=== PATIENT | male | born 1965 | race Caucasian/White ===

== ENCOUNTER 2019-07-31 11:46 | Inpatient (IN) | payer MEDICARE, MEDICAID ==
[~2019-07-31] VITALS: Ht 175.3 cm; Wt 62.6 kg
[~2019-07-31 11:46] MED LIST: DIVA250T60 PO; MEDS UNVERIFIED; MELO-108 PO; OLAN10TA3 PO; OMEP20 PO
[2019-07-31] MEDS ORDERED: PROP10TA73 PO (17:01)
[2019-07-31] MEDS ORDERED: BENZ1TAB10 PO (17:01)
[2019-07-31] MEDS ORDERED: DIVA-78 PO (17:01)
[2019-07-31] MEDS ORDERED: PHENY100 PO ×2 (17:01)
[2019-07-31] MEDS ORDERED: PALI6 PO (17:01)
[2019-07-31] MEDS ORDERED: HYDR50TA46 PO (17:01)
[2019-07-31] MEDS ORDERED: PARO10TA89 PO (17:01)
[2019-07-31] MEDS ORDERED: PNEUMOCOCCAL VACCINE POLYVALENT 0.5 ML VIAL [PPSV23] IM ONE (20:00)
[2019-07-31 21:14] VITALS: BP 119/72
[2019-08-01 00:21] VITALS: BP 125/65
[2019-08-01 08:19] VITALS: BP 119/67
[2019-08-01 16:01] VITALS: BP 114/64
[2019-08-01] MEDS: BENZTROPINE MESYLATE 1 MG TABLET PO SCH (17:19)
[2019-08-01] MEDS: PROPRANOLOL HCL 10 MG TABLET PO SCH (17:19)
[2019-08-01] MEDS: PALIPERIDONE 6 MG ER TABLET PO SCH (17:19)
[2019-08-01] MEDS: HydrOXYzine PAMOATE 25 MG CAPSULE PO SCH (17:20)
[2019-08-01 18:24] VITALS: BP_SYST 112
[2019-08-01] MEDS: IBUPROFEN 600 MG TABLET PO PRN (18:25)
[2019-08-01] MEDS: DIVALPROEX SODIUM 500 MG DR TABLET PO SCH (21:01)
[2019-08-01] MEDS: PARoxetine HCL 10 MG TABLET PO SCH (21:01)
[2019-08-01] MEDS: PHENYTOIN SODIUM 100 MG ER CAPSULE PO SCH (21:26)
[2019-08-01] MEDS: HALOPERIDOL 5 MG TABLET PO PRN (22:59)
[2019-08-01] MEDS: LORazepam 2 MG TABLET PO PRN (22:59)
[2019-08-02 08:03] VITALS: BP 115/61
[2019-08-02] MEDS: PHENYTOIN 50 MG CHEWABLE TABLET PO SCH (08:29)
[2019-08-02] MEDS: BENZTROPINE MESYLATE 1 MG TABLET PO SCH ×2 (08:29→16:30)
[2019-08-02] MEDS: OMEPRAZOLE 20 MG CAPSULE PO SCH (08:29)
[2019-08-02] MEDS: PROPRANOLOL HCL 10 MG TABLET PO SCH ×2 (08:29→16:30)
[2019-08-02] MEDS: PALIPERIDONE 6 MG ER TABLET PO SCH ×2 (08:29→16:30)
[2019-08-02] MEDS: HydrOXYzine PAMOATE 25 MG CAPSULE PO SCH ×2 (08:29→16:29)
[2019-08-02] MEDS ORDERED: PHENYTOIN SODIUM 100 MG ER CAPSULE PO SCH (09:00)
[2019-08-02 16:11] VITALS: BP 119/78
[2019-08-02] MEDS: DIVALPROEX SODIUM 500 MG DR TABLET PO SCH (20:26)
[2019-08-02] MEDS: PARoxetine HCL 10 MG TABLET PO SCH (20:26)
[2019-08-02] MEDS: PHENYTOIN SODIUM 100 MG ER CAPSULE PO SCH (20:27)
[2019-08-02] MEDS: ZOLPIDEM TARTRATE 10 MG TABLET PO PRN (20:46)
[2019-08-03 03:57] VITALS: BP 110/78
[2019-08-03 07:44] LABS: EOSINOPHILS % (AUTO) 8.4 % (1.0-6.0); HEMOGLOBIN 12.9 g/dL (13.5-17.5); LYMPHOCYTES # (AUTO) 2.1 K/uL (1.0-4.8); LYMPHOCYTES % (AUTO) 36.5 % (22.0-44.0); MEAN CORPUSCULAR HEMOGLOBIN 32.2 pg (26.0-34.0); MEAN CORPUSCULAR VOLUME 92 fL (80-100); MONOCYTES # (AUTO) 0.5 K/uL (0.1-1.0); NEUTROPHILS # (AUTO) 2.6 K/uL (1.8-7.7); NEUTROPHILS % (AUTO) 46.1 % (40.0-70.0); PLATELET COUNT (AUTO) 307 K/uL (150-450); RED BLOOD CELL COUNT(AUTO) 4.02 MIL/uL (4.50-5.90); RED CELL DISTRIBUTION WIDTH 13.7 % (11.5-14.5)
[2019-08-03 08:06] VITALS: BP 147/86
[2019-08-03 08:07] LABS: HEMOGLOBIN A1C 5.5 % (4.5-6.2)
[2019-08-03] MEDS: PHENYTOIN 50 MG CHEWABLE TABLET PO SCH (08:09)
[2019-08-03] MEDS: PROPRANOLOL HCL 10 MG TABLET PO SCH ×2 (08:09→16:28)
[2019-08-03] MEDS: PALIPERIDONE 6 MG ER TABLET PO SCH ×2 (08:09→16:28)
[2019-08-03] MEDS: HydrOXYzine PAMOATE 25 MG CAPSULE PO SCH ×2 (08:09→16:28)
[2019-08-03] MEDS: BENZTROPINE MESYLATE 1 MG TABLET PO SCH ×2 (08:09→16:28)
[2019-08-03] MEDS: OMEPRAZOLE 20 MG CAPSULE PO SCH (08:09)
[2019-08-03 08:11] LABS: ALANINE AMINOTRANSFERASE 38 U/L (12-78); ALBUMIN 3.6 g/dL (3.4-5.0); ALKALINE PHOSPHATASE 85 U/L (46-116); ANION GAP 5 mmol/L (8-16); ASPARTATE AMINOTRANSFERASE 25 U/L (15-37); BILIRUBIN,TOTAL 0.3 mg/dL (0.1-1.0); CALCIUM, TOTAL 8.6 mg/dL (8.8-10.5); CARBON DIOXIDE 33 mmol/L (22-29); CHLORIDE 97 mmol/L (98-107); CHOL/HDL RATIO 8.9 (4.2-7.3); CHOLESTEROL 295 mg/dL (131-200); CREATININE 0.51 mg/dL (0.60-1.30); FREE T4 (FREE THYROXINE) 0.64 ng/dL (0.76-1.46); GLOMERULAR FILTR. RATE CALC > 60 mL/min (>60); GLUCOSE,RANDOM 99 mg/dL (70-110); HDL CHOLESTEROL 33 mg/dL (40-60); LDL CHOL (CALC.) 237 mg/dL (0-130); POTASSIUM 4.2 mmol/L (3.5-5.1); SODIUM SERUM 135 mmol/L (136-145); TRIGLYCERIDES 125 mg/dL (15-150); UREA NITROGEN, BLOOD 12 mg/dL (7-18); VALPROIC ACID 55 mcg/mL (50-100)
[2019-08-03 16:01] VITALS: BP 131/62
[2019-08-03] MEDS: LORazepam 2 MG TABLET PO PRN (18:27)
[2019-08-03] MEDS: DIVALPROEX SODIUM 500 MG DR TABLET PO SCH (20:30)
[2019-08-03] MEDS: PHENYTOIN SODIUM 100 MG ER CAPSULE PO SCH (20:30)
[2019-08-03] MEDS: PARoxetine HCL 10 MG TABLET PO SCH (20:30)
[2019-08-04 06:29] VITALS: BP 132/68
[2019-08-04] MEDS: PHENYTOIN 50 MG CHEWABLE TABLET PO SCH (08:17)
[2019-08-04] MEDS: HydrOXYzine PAMOATE 25 MG CAPSULE PO SCH ×2 (08:18→16:28)
[2019-08-04] MEDS: OMEPRAZOLE 20 MG CAPSULE PO SCH (08:18)
[2019-08-04] MEDS: PALIPERIDONE 6 MG ER TABLET PO SCH ×2 (08:18→16:27)
[2019-08-04] MEDS: BENZTROPINE MESYLATE 1 MG TABLET PO SCH ×2 (08:18→16:27)
[2019-08-04] MEDS: PROPRANOLOL HCL 10 MG TABLET PO SCH ×2 (08:18→16:27)
[2019-08-04 08:22] VITALS: BP 123/76
[2019-08-04] MEDS ORDERED: PHEN50 PO (13:23)
[2019-08-04] MEDS ORDERED: BISACODYL 5 MG EC TABLET PO PRN (13:30)
[2019-08-04] MEDS ORDERED: ALBUTEROL SULFATE HFA 90 MCG/PUFF 8 GM INHALER IH PRN (13:30)
[2019-08-04 16:00] VITALS: BP 127/63
[2019-08-04] MEDS: LORazepam 2 MG TABLET PO PRN (19:57)
[2019-08-04] MEDS: ATORVASTATIN CALCIUM 10 MG TABLET PO SCH (20:29)
[2019-08-04] MEDS: PHENYTOIN SODIUM 100 MG ER CAPSULE PO SCH (20:30)
[2019-08-04] MEDS: DIVALPROEX SODIUM 500 MG DR TABLET PO SCH (20:30)
[2019-08-04] MEDS: PARoxetine HCL 10 MG TABLET PO SCH (20:30)
[2019-08-04] MEDS: ZOLPIDEM TARTRATE 10 MG TABLET PO PRN (21:22)
[2019-08-05 00:05] VITALS: BP 107/62
[2019-08-05] MEDS: PALIPERIDONE 6 MG ER TABLET PO SCH ×2 (08:37→16:07)
[2019-08-05] MEDS: PROPRANOLOL HCL 10 MG TABLET PO SCH ×2 (08:37→16:07)
[2019-08-05] MEDS: PHENYTOIN 50 MG CHEWABLE TABLET PO SCH (08:37)
[2019-08-05] MEDS: OMEPRAZOLE 20 MG CAPSULE PO SCH (08:38)
[2019-08-05] MEDS: HydrOXYzine PAMOATE 25 MG CAPSULE PO SCH ×2 (08:38→16:07)
[2019-08-05] MEDS: BENZTROPINE MESYLATE 1 MG TABLET PO SCH ×2 (08:42→16:07)
[2019-08-05 16:45] VITALS: BP 141/76
[2019-08-05] MEDS: HALOPERIDOL 5 MG TABLET PO PRN (18:02)
[2019-08-05] MEDS: LORazepam 2 MG TABLET PO PRN (18:02)
[2019-08-05] MEDS: PHENYTOIN SODIUM 100 MG ER CAPSULE PO SCH (20:06)
[2019-08-05] MEDS: ATORVASTATIN CALCIUM 10 MG TABLET PO SCH (20:07)
[2019-08-05] MEDS: DIVALPROEX SODIUM 500 MG DR TABLET PO SCH (20:07)
[2019-08-05] MEDS: PARoxetine HCL 10 MG TABLET PO SCH (20:07)
[2019-08-05] MEDS: ZOLPIDEM TARTRATE 10 MG TABLET PO PRN (21:01)
[2019-08-06 06:03] VITALS: BP 100/61
[2019-08-06] MEDS: PHENYTOIN 50 MG CHEWABLE TABLET PO SCH (08:07)
[2019-08-06] MEDS: PALIPERIDONE 6 MG ER TABLET PO SCH ×2 (08:08→16:33)
[2019-08-06] MEDS: HydrOXYzine PAMOATE 25 MG CAPSULE PO SCH ×2 (08:08→16:33)
[2019-08-06] MEDS: PROPRANOLOL HCL 10 MG TABLET PO SCH ×2 (08:08→16:33)
[2019-08-06] MEDS: BENZTROPINE MESYLATE 1 MG TABLET PO SCH ×2 (08:08→16:33)
[2019-08-06] MEDS: OMEPRAZOLE 20 MG CAPSULE PO SCH (08:08)
[2019-08-06 08:09] VITALS: BP 112/76
[2019-08-06] MEDS: LORazepam 2 MG TABLET PO PRN ×2 (12:38→18:04)
[2019-08-06 16:18] VITALS: BP 116/60
[2019-08-06] MEDS: ATORVASTATIN CALCIUM 10 MG TABLET PO SCH (20:29)
[2019-08-06] MEDS: PARoxetine HCL 10 MG TABLET PO SCH (20:29)
[2019-08-06] MEDS: DIVALPROEX SODIUM 500 MG DR TABLET PO SCH (20:29)
[2019-08-06] MEDS: PHENYTOIN SODIUM 100 MG ER CAPSULE PO SCH (20:29)
[2019-08-06] MEDS: ZOLPIDEM TARTRATE 10 MG TABLET PO PRN (21:16)
[2019-08-07 06:56] VITALS: BP_SYST 112; BP_SYST 143; BP_DIAS 107; BP_DIAS 76
[2019-08-07 08:12] VITALS: BP 139/80
[2019-08-07] MEDS: OMEPRAZOLE 20 MG CAPSULE PO SCH (08:48)
[2019-08-07] MEDS: MULTIVITAMINS WITH IRON TABLET PO SCH (08:48)
[2019-08-07] MEDS: HydrOXYzine PAMOATE 25 MG CAPSULE PO SCH ×2 (08:48→17:41)
[2019-08-07] MEDS: PALIPERIDONE 6 MG ER TABLET PO SCH ×2 (08:48→17:41)
[2019-08-07] MEDS: BENZTROPINE MESYLATE 1 MG TABLET PO SCH ×2 (08:48→17:41)
[2019-08-07] MEDS: PHENYTOIN 50 MG CHEWABLE TABLET PO SCH (08:49)
[2019-08-07] MEDS: PROPRANOLOL HCL 10 MG TABLET PO SCH ×2 (08:49→17:41)
[2019-08-07] MEDS: LORazepam 2 MG TABLET PO PRN ×2 (12:21→22:16)
[2019-08-07 17:26] VITALS: BP 140/80
[2019-08-07] MEDS: PARoxetine HCL 10 MG TABLET PO SCH (20:31)
[2019-08-07] MEDS: DIVALPROEX SODIUM 500 MG DR TABLET PO SCH (20:31)
[2019-08-07] MEDS: PHENYTOIN SODIUM 100 MG ER CAPSULE PO SCH (20:31)
[2019-08-07] MEDS: ATORVASTATIN CALCIUM 10 MG TABLET PO SCH (20:31)
[2019-08-07] MEDS: ZOLPIDEM TARTRATE 10 MG TABLET PO PRN (20:54)
[2019-08-07 21:13] VITALS: BP 127/76
[2019-08-07] MEDS: ACETAMINOPHEN 325 MG TABLET PO PRN (21:13)
[2019-08-08 08:03] VITALS: BP 136/62
[2019-08-08] MEDS: PHENYTOIN 50 MG CHEWABLE TABLET PO SCH (08:10)
[2019-08-08] MEDS: OMEPRAZOLE 20 MG CAPSULE PO SCH (08:10)
[2019-08-08] MEDS: HydrOXYzine PAMOATE 25 MG CAPSULE PO SCH ×2 (08:10→16:21)
[2019-08-08] MEDS: MULTIVITAMINS WITH IRON TABLET PO SCH (08:10)
[2019-08-08] MEDS: BENZTROPINE MESYLATE 1 MG TABLET PO SCH ×2 (08:10→16:17)
[2019-08-08] MEDS: PROPRANOLOL HCL 10 MG TABLET PO SCH ×2 (08:10→16:18)
[2019-08-08] MEDS: PALIPERIDONE 6 MG ER TABLET PO SCH ×2 (08:10→16:17)
[2019-08-08] MEDS: LORazepam 2 MG TABLET PO PRN ×2 (11:09→21:15)
[2019-08-08 16:03] VITALS: BP 142/68
[2019-08-08] MEDS: DIVALPROEX SODIUM 500 MG DR TABLET PO SCH (20:17)
[2019-08-08] MEDS: PARoxetine HCL 10 MG TABLET PO SCH (20:19)
[2019-08-08] MEDS: ATORVASTATIN CALCIUM 10 MG TABLET PO SCH (20:20)
[2019-08-08] MEDS: PHENYTOIN SODIUM 100 MG ER CAPSULE PO SCH (20:21)
[2019-08-09 00:13] VITALS: BP 120/63
[2019-08-09 06:08] VITALS: BP 122/65
[2019-08-09] MEDS: LORazepam 2 MG TABLET PO PRN ×2 (06:08→12:48)
[2019-08-09 08:03] VITALS: BP 109/61
[2019-08-09 08:11] LABS: MAGNESIUM 1.7 mg/dL (1.80-2.40); PHOSPHORUS 4.5 mg/dL (2.5-4.9)
[2019-08-09] MEDS: BENZTROPINE MESYLATE 1 MG TABLET PO SCH ×2 (08:24→16:30)
[2019-08-09] MEDS: OMEPRAZOLE 20 MG CAPSULE PO SCH (08:25)
[2019-08-09] MEDS: MULTIVITAMINS WITH IRON TABLET PO SCH (08:25)
[2019-08-09] MEDS: PHENYTOIN 50 MG CHEWABLE TABLET PO SCH (08:25)
[2019-08-09] MEDS: PALIPERIDONE 6 MG ER TABLET PO SCH ×2 (08:25→16:29)
[2019-08-09] MEDS: HydrOXYzine PAMOATE 25 MG CAPSULE PO SCH ×2 (08:25→16:30)
[2019-08-09] MEDS: PROPRANOLOL HCL 10 MG TABLET PO SCH ×2 (08:25→16:30)
[2019-08-09 08:36] LABS: PHENYTOIN (DILANTIN) 29.6 mcg/mL (10.0-20.0)
[2019-08-09] MEDS: PHENYTOIN SODIUM 100 MG ER CAPSULE PO SCH ×2 (12:41→16:30)
[2019-08-09 16:24] VITALS: BP 133/69
[2019-08-09] MEDS: PARoxetine HCL 10 MG TABLET PO SCH (20:36)
[2019-08-09] MEDS: DIVALPROEX SODIUM 500 MG DR TABLET PO SCH (20:37)
[2019-08-09] MEDS: ATORVASTATIN CALCIUM 10 MG TABLET PO SCH (20:37)
[2019-08-09] MEDS: ZOLPIDEM TARTRATE 10 MG TABLET PO PRN (21:20)
[2019-08-10 02:27] VITALS: BP 121/61
[2019-08-10 08:09] VITALS: BP 114/60
[2019-08-10] MEDS: PHENYTOIN SODIUM 100 MG ER CAPSULE PO SCH ×3 (08:29→16:02)
[2019-08-10] MEDS: OMEPRAZOLE 20 MG CAPSULE PO SCH (08:30)
[2019-08-10] MEDS: HydrOXYzine PAMOATE 25 MG CAPSULE PO SCH ×2 (08:30→16:01)
[2019-08-10] MEDS: PALIPERIDONE 6 MG ER TABLET PO SCH ×2 (08:30→16:01)
[2019-08-10] MEDS: MULTIVITAMINS WITH IRON TABLET PO SCH (08:30)
[2019-08-10] MEDS: BENZTROPINE MESYLATE 1 MG TABLET PO SCH ×2 (08:30→16:01)
[2019-08-10] MEDS: PROPRANOLOL HCL 10 MG TABLET PO SCH ×2 (08:30→16:02)
[2019-08-10] MEDS: LORazepam 2 MG TABLET PO PRN (11:01)
[2019-08-10 16:01] VITALS: BP 120/63
[2019-08-10] MEDS: PARoxetine HCL 10 MG TABLET PO SCH (20:11)
[2019-08-10] MEDS: ATORVASTATIN CALCIUM 10 MG TABLET PO SCH (20:11)
[2019-08-10] MEDS: DIVALPROEX SODIUM 500 MG DR TABLET PO SCH (20:11)
[2019-08-10] MEDS: ZOLPIDEM TARTRATE 10 MG TABLET PO PRN (20:11)
[2019-08-11 07:20] VITALS: BP 116/65
[2019-08-11 08:19] VITALS: BP 104/74
[2019-08-11] MEDS: OMEPRAZOLE 20 MG CAPSULE PO SCH (09:05)
[2019-08-11] MEDS: PALIPERIDONE 6 MG ER TABLET PO SCH ×2 (09:05→16:34)
[2019-08-11] MEDS: PROPRANOLOL HCL 10 MG TABLET PO SCH ×2 (09:05→16:34)
[2019-08-11] MEDS: BENZTROPINE MESYLATE 1 MG TABLET PO SCH ×2 (09:05→16:34)
[2019-08-11] MEDS: MULTIVITAMINS WITH IRON TABLET PO SCH (09:05)
[2019-08-11] MEDS: HydrOXYzine PAMOATE 25 MG CAPSULE PO SCH ×2 (09:05→16:34)
[2019-08-11] MEDS: PHENYTOIN SODIUM 100 MG ER CAPSULE PO SCH (10:08)
[2019-08-11] MEDS: IBUPROFEN 600 MG TABLET PO PRN (13:56)
[2019-08-11 16:02] VITALS: BP 142/78
[2019-08-11 16:33] VITALS: BP 142/72
[2019-08-11] MEDS: DIVALPROEX SODIUM 500 MG DR TABLET PO SCH (20:27)
[2019-08-11] MEDS: ATORVASTATIN CALCIUM 10 MG TABLET PO SCH (20:27)
[2019-08-11] MEDS: PARoxetine HCL 10 MG TABLET PO SCH (20:27)
[2019-08-11] MEDS: ZOLPIDEM TARTRATE 10 MG TABLET PO PRN (21:19)
[2019-08-11] MEDS: LORazepam 2 MG TABLET PO PRN (22:54)
[2019-08-12] MEDS: HALOPERIDOL 5 MG TABLET PO PRN (00:45)
[2019-08-12] MEDS: BENZTROPINE MESYLATE 1 MG TABLET PO SCH ×2 (08:15→16:32)
[2019-08-12] MEDS: MULTIVITAMINS WITH IRON TABLET PO SCH (08:15)
[2019-08-12] MEDS: HydrOXYzine PAMOATE 25 MG CAPSULE PO SCH ×2 (08:15→16:32)
[2019-08-12] MEDS: OMEPRAZOLE 20 MG CAPSULE PO SCH (08:15)
[2019-08-12] MEDS: PALIPERIDONE 6 MG ER TABLET PO SCH ×2 (08:15→16:32)
[2019-08-12] MEDS: PROPRANOLOL HCL 10 MG TABLET PO SCH ×2 (08:16→16:32)
[2019-08-12] MEDS: LORazepam 2 MG TABLET PO PRN (12:24)
[2019-08-12] MEDS: IBUPROFEN 600 MG TABLET PO PRN (16:32)
[2019-08-12 16:33] VITALS: BP 120/65
[2019-08-12] MEDS: DIVALPROEX SODIUM 500 MG DR TABLET PO SCH (20:35)
[2019-08-12] MEDS: ATORVASTATIN CALCIUM 10 MG TABLET PO SCH (20:36)
[2019-08-12] MEDS: PARoxetine HCL 10 MG TABLET PO SCH (20:36)
[2019-08-12] MEDS: ZOLPIDEM TARTRATE 10 MG TABLET PO PRN (21:23)
[2019-08-13 06:20] VITALS: BP 115/68
[2019-08-13 08:03] VITALS: BP 116/64
[2019-08-13] MEDS: HydrOXYzine PAMOATE 25 MG CAPSULE PO SCH ×2 (08:19→16:29)
[2019-08-13] MEDS: PALIPERIDONE 6 MG ER TABLET PO SCH ×2 (08:19→16:30)
[2019-08-13] MEDS: BENZTROPINE MESYLATE 1 MG TABLET PO SCH ×2 (08:19→16:29)
[2019-08-13] MEDS: OMEPRAZOLE 20 MG CAPSULE PO SCH (08:20)
[2019-08-13] MEDS: PROPRANOLOL HCL 10 MG TABLET PO SCH ×2 (08:20→16:29)
[2019-08-13] MEDS: MULTIVITAMINS WITH IRON TABLET PO SCH (08:20)
[2019-08-13] MEDS: LORazepam 2 MG TABLET PO PRN (12:19)
[2019-08-13 16:01] VITALS: BP 140/78
[2019-08-13] MEDS: DIVALPROEX SODIUM 250 MG DR TABLET PO SCH (16:30)
[2019-08-13] MEDS: IBUPROFEN 600 MG TABLET PO PRN (18:09)
[2019-08-13 18:10] VITALS: BP 132/64
[2019-08-13] MEDS: PARoxetine HCL 10 MG TABLET PO SCH (20:32)
[2019-08-13] MEDS: ATORVASTATIN CALCIUM 10 MG TABLET PO SCH (20:32)
[2019-08-13] MEDS: ZOLPIDEM TARTRATE 10 MG TABLET PO PRN (20:53)
[2019-08-14 00:01] VITALS: BP 141/84
[2019-08-14] MEDS: LORazepam 2 MG TABLET PO PRN ×2 (00:04→12:43)
[2019-08-14] MEDS: OMEPRAZOLE 20 MG CAPSULE PO SCH (08:11)
[2019-08-14] MEDS: BENZTROPINE MESYLATE 1 MG TABLET PO SCH ×2 (08:11→16:09)
[2019-08-14] MEDS: PALIPERIDONE 6 MG ER TABLET PO SCH ×2 (08:11→16:09)
[2019-08-14] MEDS: PROPRANOLOL HCL 10 MG TABLET PO SCH ×2 (08:11→16:09)
[2019-08-14] MEDS: DIVALPROEX SODIUM 250 MG DR TABLET PO SCH ×2 (08:11→16:09)
[2019-08-14] MEDS: MULTIVITAMINS WITH IRON TABLET PO SCH (08:11)
[2019-08-14] MEDS: HydrOXYzine PAMOATE 25 MG CAPSULE PO SCH ×2 (08:11→16:54)
[2019-08-14 08:15] VITALS: BP 118/62
[2019-08-14 16:04] VITALS: BP 119/69
[2019-08-14] MEDS: IBUPROFEN 600 MG TABLET PO PRN (16:09)
[2019-08-14] MEDS: PHENYTOIN SODIUM 100 MG ER CAPSULE PO SCH (20:03)
[2019-08-14] MEDS: PARoxetine HCL 10 MG TABLET PO SCH (20:03)
[2019-08-14] MEDS: ATORVASTATIN CALCIUM 10 MG TABLET PO SCH (20:03)
[2019-08-14] MEDS: ZOLPIDEM TARTRATE 10 MG TABLET PO PRN (20:05)
[2019-08-15 00:22] VITALS: BP 135/63
[2019-08-15 08:07] VITALS: BP 114/71
[2019-08-15] MEDS: HydrOXYzine PAMOATE 25 MG CAPSULE PO SCH ×2 (09:33→16:44)
[2019-08-15] MEDS: BENZTROPINE MESYLATE 1 MG TABLET PO SCH ×2 (09:33→16:44)
[2019-08-15] MEDS: PALIPERIDONE 6 MG ER TABLET PO SCH ×2 (09:33→16:44)
[2019-08-15] MEDS: PROPRANOLOL HCL 10 MG TABLET PO SCH ×2 (09:33→16:44)
[2019-08-15] MEDS: DIVALPROEX SODIUM 250 MG DR TABLET PO SCH ×2 (09:33→16:43)
[2019-08-15] MEDS: OMEPRAZOLE 20 MG CAPSULE PO SCH (09:33)
[2019-08-15] MEDS: MULTIVITAMINS WITH IRON TABLET PO SCH (09:33)
[2019-08-15] MEDS: LORazepam 2 MG TABLET PO PRN (11:38)
[2019-08-15 16:27] VITALS: BP 120/60
[2019-08-15] MEDS: PARoxetine HCL 10 MG TABLET PO SCH (20:34)
[2019-08-15] MEDS: ATORVASTATIN CALCIUM 20 MG TABLET PO SCH (20:34)
[2019-08-15] MEDS: PHENYTOIN SODIUM 100 MG ER CAPSULE PO SCH (20:34)
[2019-08-15] MEDS: ZOLPIDEM TARTRATE 10 MG TABLET PO PRN (20:34)
[2019-08-16] MEDS: MULTIVITAMINS WITH IRON TABLET PO SCH (08:21)
[2019-08-16] MEDS: OMEPRAZOLE 20 MG CAPSULE PO SCH (08:21)
[2019-08-16] MEDS: PALIPERIDONE 6 MG ER TABLET PO SCH ×2 (08:21→16:35)
[2019-08-16] MEDS: DIVALPROEX SODIUM 250 MG DR TABLET PO SCH ×2 (08:22→16:35)
[2019-08-16] MEDS: HydrOXYzine PAMOATE 25 MG CAPSULE PO SCH ×2 (08:22→16:35)
[2019-08-16] MEDS: BENZTROPINE MESYLATE 1 MG TABLET PO SCH ×2 (08:22→16:35)
[2019-08-16] MEDS: PROPRANOLOL HCL 10 MG TABLET PO SCH ×2 (08:34→16:35)
[2019-08-16 08:47] VITALS: BP 115/68
[2019-08-16] MEDS: LORazepam 2 MG TABLET PO PRN (09:27)
[2019-08-16 16:04] VITALS: BP 140/78
[2019-08-16] MEDS: ATORVASTATIN CALCIUM 20 MG TABLET PO SCH (20:31)
[2019-08-16] MEDS: PARoxetine HCL 10 MG TABLET PO SCH (20:32)
[2019-08-16] MEDS: PHENYTOIN SODIUM 100 MG ER CAPSULE PO SCH (20:32)
[2019-08-17] MEDS: ZOLPIDEM TARTRATE 10 MG TABLET PO PRN ×2 (01:04→21:11)
[2019-08-17 01:29] VITALS: BP 114/29
[2019-08-17 08:07] VITALS: BP 107/60
[2019-08-17] MEDS: BENZTROPINE MESYLATE 1 MG TABLET PO SCH ×2 (08:34→16:28)
[2019-08-17] MEDS: DIVALPROEX SODIUM 250 MG DR TABLET PO SCH ×2 (08:34→16:28)
[2019-08-17] MEDS: OMEPRAZOLE 20 MG CAPSULE PO SCH (08:34)
[2019-08-17] MEDS: MULTIVITAMINS WITH IRON TABLET PO SCH (08:34)
[2019-08-17] MEDS: PALIPERIDONE 6 MG ER TABLET PO SCH ×2 (08:34→16:28)
[2019-08-17] MEDS: HydrOXYzine PAMOATE 25 MG CAPSULE PO SCH ×2 (08:34→16:28)
[2019-08-17] MEDS: PROPRANOLOL HCL 10 MG TABLET PO SCH ×2 (08:39→16:28)
[2019-08-17] MEDS: LORazepam 2 MG TABLET PO PRN ×2 (10:07→18:28)
[2019-08-17 10:12] VITALS: BP 110/64
[2019-08-17 16:15] VITALS: BP 114/72
[2019-08-17] MEDS: ATORVASTATIN CALCIUM 20 MG TABLET PO SCH (20:27)
[2019-08-17] MEDS: PHENYTOIN SODIUM 100 MG ER CAPSULE PO SCH (20:27)
[2019-08-17] MEDS: PARoxetine HCL 10 MG TABLET PO SCH (20:27)
[2019-08-18] MEDS: DIVALPROEX SODIUM 250 MG DR TABLET PO SCH ×2 (08:05→16:37)
[2019-08-18] MEDS: OMEPRAZOLE 20 MG CAPSULE PO SCH (08:05)
[2019-08-18] MEDS: BENZTROPINE MESYLATE 1 MG TABLET PO SCH ×2 (08:05→16:37)
[2019-08-18] MEDS: MULTIVITAMINS WITH IRON TABLET PO SCH (08:05)
[2019-08-18] MEDS: PROPRANOLOL HCL 10 MG TABLET PO SCH ×2 (08:05→16:37)
[2019-08-18] MEDS: HydrOXYzine PAMOATE 25 MG CAPSULE PO SCH ×2 (08:05→16:37)
[2019-08-18] MEDS: PALIPERIDONE 6 MG ER TABLET PO SCH ×2 (08:05→16:37)
[2019-08-18] MEDS: LORazepam 2 MG TABLET PO PRN (11:55)
[2019-08-18 16:01] VITALS: BP 113/71
[2019-08-18] MEDS: ATORVASTATIN CALCIUM 20 MG TABLET PO SCH (20:28)
[2019-08-18] MEDS: PHENYTOIN SODIUM 100 MG ER CAPSULE PO SCH (20:28)
[2019-08-18] MEDS: PARoxetine HCL 10 MG TABLET PO SCH (20:29)
[2019-08-18] MEDS: ZOLPIDEM TARTRATE 10 MG TABLET PO PRN (21:17)
[2019-08-19 00:48] VITALS: BP 139/79
[2019-08-19 08:03] VITALS: BP 116/68
[2019-08-19] MEDS: HydrOXYzine PAMOATE 25 MG CAPSULE PO SCH ×2 (08:38→17:37)
[2019-08-19] MEDS: BENZTROPINE MESYLATE 1 MG TABLET PO SCH ×2 (08:38→17:37)
[2019-08-19] MEDS: MULTIVITAMINS WITH IRON TABLET PO SCH (08:38)
[2019-08-19] MEDS: DIVALPROEX SODIUM 250 MG DR TABLET PO SCH ×2 (08:38→17:37)
[2019-08-19] MEDS: OMEPRAZOLE 20 MG CAPSULE PO SCH (08:38)
[2019-08-19] MEDS: PROPRANOLOL HCL 10 MG TABLET PO SCH ×2 (08:38→17:37)
[2019-08-19] MEDS: PALIPERIDONE 6 MG ER TABLET PO SCH ×2 (08:38→17:37)
[2019-08-19] MEDS: LORazepam 2 MG TABLET PO PRN (13:55)
[2019-08-19 16:01] VITALS: BP 131/66
[2019-08-19] MEDS: ATORVASTATIN CALCIUM 20 MG TABLET PO SCH (20:29)
[2019-08-19] MEDS: PHENYTOIN SODIUM 100 MG ER CAPSULE PO SCH (20:29)
[2019-08-19] MEDS: PARoxetine HCL 10 MG TABLET PO SCH (20:29)
[2019-08-19] MEDS: ZOLPIDEM TARTRATE 10 MG TABLET PO PRN (20:56)
[2019-08-20 08:07] VITALS: BP 114/62
[2019-08-20] MEDS: BENZTROPINE MESYLATE 1 MG TABLET PO SCH ×2 (08:55→16:23)
[2019-08-20] MEDS: MULTIVITAMINS WITH IRON TABLET PO SCH (08:55)
[2019-08-20] MEDS: HydrOXYzine PAMOATE 25 MG CAPSULE PO SCH ×2 (08:55→16:22)
[2019-08-20] MEDS: DIVALPROEX SODIUM 250 MG DR TABLET PO SCH ×2 (08:55→16:23)
[2019-08-20] MEDS: OMEPRAZOLE 20 MG CAPSULE PO SCH (08:55)
[2019-08-20] MEDS: PALIPERIDONE 6 MG ER TABLET PO SCH ×2 (08:56→16:24)
[2019-08-20] MEDS: PROPRANOLOL HCL 10 MG TABLET PO SCH ×2 (09:01→16:23)
[2019-08-20 16:01] VITALS: BP 109/66
[2019-08-20] MEDS: IBUPROFEN 600 MG TABLET PO PRN (16:24)
[2019-08-20] MEDS: LORazepam 2 MG TABLET PO PRN (16:24)
[2019-08-20] MEDS: PHENYTOIN SODIUM 100 MG ER CAPSULE PO SCH (20:33)
[2019-08-20] MEDS: PARoxetine HCL 10 MG TABLET PO SCH (20:34)
[2019-08-20] MEDS: ATORVASTATIN CALCIUM 20 MG TABLET PO SCH (20:34)
[2019-08-20] MEDS: ZOLPIDEM TARTRATE 10 MG TABLET PO PRN (21:10)
[2019-08-21] MEDS: PHENYTOIN SODIUM 100 MG ER CAPSULE PO SCH ×2 (08:09→20:34)
[2019-08-21] MEDS: OMEPRAZOLE 20 MG CAPSULE PO SCH (08:10)
[2019-08-21] MEDS: PROPRANOLOL HCL 10 MG TABLET PO SCH ×2 (08:10→16:37)
[2019-08-21] MEDS: MULTIVITAMINS WITH IRON TABLET PO SCH (08:10)
[2019-08-21] MEDS: PALIPERIDONE 6 MG ER TABLET PO SCH ×2 (08:10→16:37)
[2019-08-21] MEDS: HydrOXYzine PAMOATE 25 MG CAPSULE PO SCH ×2 (08:10→16:37)
[2019-08-21] MEDS: DIVALPROEX SODIUM 250 MG DR TABLET PO SCH ×2 (08:10→16:37)
[2019-08-21] MEDS: BENZTROPINE MESYLATE 1 MG TABLET PO SCH ×2 (08:10→16:37)
[2019-08-21 08:16] VITALS: BP 108/79
[2019-08-21] MEDS: IBUPROFEN 600 MG TABLET PO PRN (16:12)
[2019-08-21 16:13] VITALS: BP 116/65
[2019-08-21] MEDS ORDERED: TUBERCULIN, PURIFIED PROTEIN DERIVATIVE 5 TU/0.1 ML SYRINGE ID ONE ×2 (20:00→21:00)
[2019-08-21] MEDS: LORazepam 2 MG TABLET PO PRN (20:06)
[2019-08-21] MEDS: ATORVASTATIN CALCIUM 20 MG TABLET PO SCH (20:34)
[2019-08-21] MEDS: PARoxetine HCL 10 MG TABLET PO SCH (20:34)
[2019-08-21] MEDS: ZOLPIDEM TARTRATE 10 MG TABLET PO PRN (22:39)
[2019-08-22 00:05] VITALS: BP 123/70
[2019-08-22] MEDS: HydrOXYzine PAMOATE 25 MG CAPSULE PO SCH ×2 (08:11→17:07)
[2019-08-22] MEDS: OMEPRAZOLE 20 MG CAPSULE PO SCH (08:11)
[2019-08-22] MEDS: PHENYTOIN SODIUM 100 MG ER CAPSULE PO SCH ×2 (08:12→20:09)
[2019-08-22] MEDS: DIVALPROEX SODIUM 250 MG DR TABLET PO SCH ×2 (08:12→17:08)
[2019-08-22] MEDS: PROPRANOLOL HCL 10 MG TABLET PO SCH ×2 (08:12→17:07)
[2019-08-22] MEDS: PALIPERIDONE 6 MG ER TABLET PO SCH ×2 (08:12→17:07)
[2019-08-22] MEDS: BENZTROPINE MESYLATE 1 MG TABLET PO SCH ×2 (08:12→17:07)
[2019-08-22] MEDS: MULTIVITAMINS WITH IRON TABLET PO SCH (08:12)
[2019-08-22 08:20] VITALS: BP 106/68
[2019-08-22] MEDS: LORazepam 2 MG TABLET PO PRN (09:46)
[2019-08-22 17:08] VITALS: BP 118/67
[2019-08-22 18:32] VITALS: BP 107/65
[2019-08-22] MEDS: IBUPROFEN 600 MG TABLET PO PRN (18:32)
[2019-08-22] MEDS: ATORVASTATIN CALCIUM 20 MG TABLET PO SCH (20:10)
[2019-08-22] MEDS: PARoxetine HCL 10 MG TABLET PO SCH (20:11)
[2019-08-22] MEDS: ZOLPIDEM TARTRATE 10 MG TABLET PO PRN (21:53)
[2019-08-23 01:20] VITALS: BP 125/63
[2019-08-23 07:41] LABS: ANION GAP 3 mmol/L (8-16); CALCIUM, TOTAL 8.5 mg/dL (8.8-10.5); CARBON DIOXIDE 32 mmol/L (22-29); CHLORIDE 93 mmol/L (98-107); GLOMERULAR FILTR. RATE CALC > 60 mL/min (>60); GLUCOSE,RANDOM 83 mg/dL (70-110); PHENYTOIN (DILANTIN) 11.3 mcg/mL (10.0-20.0); POTASSIUM 4.9 mmol/L (3.5-5.1); SODIUM SERUM 128 mmol/L (136-145); UREA NITROGEN, BLOOD 12 mg/dL (7-18)
[2019-08-23 08:30] VITALS: BP 113/72
[2019-08-23] MEDS: OMEPRAZOLE 20 MG CAPSULE PO SCH (08:30)
[2019-08-23] MEDS: PALIPERIDONE 6 MG ER TABLET PO SCH ×2 (08:30→16:41)
[2019-08-23] MEDS: BENZTROPINE MESYLATE 1 MG TABLET PO SCH ×2 (08:30→16:40)
[2019-08-23] MEDS: DIVALPROEX SODIUM 250 MG DR TABLET PO SCH ×2 (08:30→16:41)
[2019-08-23] MEDS: HydrOXYzine PAMOATE 25 MG CAPSULE PO SCH ×2 (08:30→16:41)
[2019-08-23] MEDS: MULTIVITAMINS WITH IRON TABLET PO SCH (08:30)
[2019-08-23] MEDS: PHENYTOIN SODIUM 100 MG ER CAPSULE PO SCH ×2 (08:31→20:05)
[2019-08-23] MEDS: PROPRANOLOL HCL 10 MG TABLET PO SCH ×2 (08:31→16:41)
[2019-08-23] MEDS: LORazepam 2 MG TABLET PO PRN (10:14)
[2019-08-23 16:01] VITALS: BP 114/77
[2019-08-23] MEDS: IBUPROFEN 600 MG TABLET PO PRN (17:50)
[2019-08-23] MEDS: ATORVASTATIN CALCIUM 20 MG TABLET PO SCH (20:05)
[2019-08-23] MEDS: PARoxetine HCL 10 MG TABLET PO SCH (20:06)
[2019-08-23] MEDS: ZOLPIDEM TARTRATE 10 MG TABLET PO PRN (20:49)
[2019-08-24 08:02] VITALS: BP 116/62
[2019-08-24] MEDS: DIVALPROEX SODIUM 250 MG DR TABLET PO SCH ×2 (09:06→16:03)
[2019-08-24] MEDS: MULTIVITAMINS WITH IRON TABLET PO SCH (09:06)
[2019-08-24] MEDS: PHENYTOIN SODIUM 100 MG ER CAPSULE PO SCH ×2 (09:08→20:32)
[2019-08-24] MEDS: OMEPRAZOLE 20 MG CAPSULE PO SCH (09:08)
[2019-08-24] MEDS: PROPRANOLOL HCL 10 MG TABLET PO SCH ×2 (09:08→16:03)
[2019-08-24] MEDS: HydrOXYzine PAMOATE 25 MG CAPSULE PO SCH ×2 (09:08→16:03)
[2019-08-24] MEDS: BENZTROPINE MESYLATE 1 MG TABLET PO SCH ×2 (09:08→16:03)
[2019-08-24] MEDS: PALIPERIDONE 6 MG ER TABLET PO SCH ×2 (09:08→16:03)
[2019-08-24] MEDS: LORazepam 2 MG TABLET PO PRN (12:46)
[2019-08-24 16:03] VITALS: BP 133/68
[2019-08-24] MEDS: ATORVASTATIN CALCIUM 20 MG TABLET PO SCH (20:32)
[2019-08-24] MEDS: PARoxetine HCL 10 MG TABLET PO SCH (20:32)
[2019-08-24] MEDS: ZOLPIDEM TARTRATE 10 MG TABLET PO PRN (20:32)
[2019-08-25 00:04] VITALS: BP 146/76
[2019-08-25] MEDS: LORazepam 2 MG TABLET PO PRN ×2 (00:11→19:07)
[2019-08-25 08:17] VITALS: BP 114/70
[2019-08-25] MEDS: OMEPRAZOLE 20 MG CAPSULE PO SCH (08:59)
[2019-08-25] MEDS: DIVALPROEX SODIUM 250 MG DR TABLET PO SCH ×2 (08:59→16:29)
[2019-08-25] MEDS: MULTIVITAMINS WITH IRON TABLET PO SCH (08:59)
[2019-08-25] MEDS: PHENYTOIN SODIUM 100 MG ER CAPSULE PO SCH ×2 (08:59→20:31)
[2019-08-25] MEDS: PROPRANOLOL HCL 10 MG TABLET PO SCH ×2 (08:59→16:28)
[2019-08-25] MEDS: HydrOXYzine PAMOATE 25 MG CAPSULE PO SCH ×2 (08:59→16:29)
[2019-08-25] MEDS: BENZTROPINE MESYLATE 1 MG TABLET PO SCH ×2 (08:59→16:28)
[2019-08-25] MEDS: PALIPERIDONE 6 MG ER TABLET PO SCH ×2 (08:59→16:28)
[2019-08-25 16:05] VITALS: BP 117/71
[2019-08-25] MEDS: IBUPROFEN 600 MG TABLET PO PRN (16:05)
[2019-08-25] MEDS: ATORVASTATIN CALCIUM 20 MG TABLET PO SCH (20:31)
[2019-08-25] MEDS: PARoxetine HCL 10 MG TABLET PO SCH (20:32)
[2019-08-26 00:50] VITALS: BP 121/78
[2019-08-26] MEDS: DIVALPROEX SODIUM 250 MG DR TABLET PO SCH ×2 (08:00→16:28)
[2019-08-26] MEDS: BENZTROPINE MESYLATE 1 MG TABLET PO SCH ×2 (08:00→16:28)
[2019-08-26] MEDS: PALIPERIDONE 6 MG ER TABLET PO SCH ×2 (08:01→16:28)
[2019-08-26] MEDS: PHENYTOIN SODIUM 100 MG ER CAPSULE PO SCH ×2 (08:01→20:30)
[2019-08-26] MEDS: HydrOXYzine PAMOATE 25 MG CAPSULE PO SCH ×2 (08:01→16:28)
[2019-08-26] MEDS: OMEPRAZOLE 20 MG CAPSULE PO SCH (08:01)
[2019-08-26] MEDS: MULTIVITAMINS WITH IRON TABLET PO SCH (08:01)
[2019-08-26] MEDS: PROPRANOLOL HCL 10 MG TABLET PO SCH ×2 (08:02→16:28)
[2019-08-26 08:10] VITALS: BP 104/63
[2019-08-26 08:53] LABS: ALANINE AMINOTRANSFERASE 45 U/L (12-78); ALBUMIN 3.3 g/dL (3.4-5.0); ALKALINE PHOSPHATASE 57 U/L (46-116); ANION GAP 3 mmol/L (8-16); ASPARTATE AMINOTRANSFERASE 20 U/L (15-37); BILIRUBIN,TOTAL 0.2 mg/dL (0.1-1.0); CALCIUM, TOTAL 8.1 mg/dL (8.8-10.5); CARBON DIOXIDE 32 mmol/L (22-29); CHLORIDE 96 mmol/L (98-107); CREATINE KINASE, TOTAL ONLY 57 U/L (39-308); CREATININE 0.56 mg/dL (0.60-1.30); GLOMERULAR FILTR. RATE CALC > 60 mL/min (>60); GLUCOSE,RANDOM 84 mg/dL (70-110); POTASSIUM 4.8 mmol/L (3.5-5.1); SODIUM SERUM 131 mmol/L (136-145); TOTAL PROTEIN, SERUM 6.1 g/dL (6.4-8.2); UREA NITROGEN, BLOOD 12 mg/dL (7-18)
[2019-08-26] MEDS: LORazepam 2 MG TABLET PO PRN ×2 (13:47→18:40)
[2019-08-26 16:15] VITALS: BP 112/63
[2019-08-26] MEDS: IBUPROFEN 600 MG TABLET PO PRN (16:15)
[2019-08-26] MEDS: ATORVASTATIN CALCIUM 20 MG TABLET PO SCH (20:31)
[2019-08-26] MEDS: PARoxetine HCL 10 MG TABLET PO SCH (20:31)
[2019-08-26] MEDS: ZOLPIDEM TARTRATE 10 MG TABLET PO PRN (20:50)
[2019-08-27 01:07] VITALS: BP 114/62
[2019-08-27] MEDS: LORazepam 2 MG TABLET PO PRN ×2 (02:51→18:54)
[2019-08-27] MEDS: MULTIVITAMINS WITH IRON TABLET PO SCH (08:03)
[2019-08-27] MEDS: DIVALPROEX SODIUM 250 MG DR TABLET PO SCH ×2 (08:04→16:30)
[2019-08-27] MEDS: PROPRANOLOL HCL 10 MG TABLET PO SCH ×2 (08:04→16:30)
[2019-08-27] MEDS: PHENYTOIN SODIUM 100 MG ER CAPSULE PO SCH ×2 (08:04→20:24)
[2019-08-27] MEDS: MAGNESIUM OXIDE 400 MG TABLET PO SCH (08:04)
[2019-08-27] MEDS: PALIPERIDONE 6 MG ER TABLET PO SCH ×2 (08:04→16:30)
[2019-08-27] MEDS: OMEPRAZOLE 20 MG CAPSULE PO SCH (08:04)
[2019-08-27] MEDS: HydrOXYzine PAMOATE 25 MG CAPSULE PO SCH ×2 (08:04→16:30)
[2019-08-27] MEDS: BENZTROPINE MESYLATE 1 MG TABLET PO SCH ×2 (08:05→16:29)
[2019-08-27 08:12] VITALS: BP 115/64
[2019-08-27 16:01] VITALS: BP 138/79
[2019-08-27] MEDS: PARoxetine HCL 10 MG TABLET PO SCH (20:24)
[2019-08-27] MEDS: ATORVASTATIN CALCIUM 20 MG TABLET PO SCH (20:24)
[2019-08-27] MEDS: ZOLPIDEM TARTRATE 10 MG TABLET PO PRN (20:48)
[2019-08-28 00:11] VITALS: BP 127/78
[2019-08-28 08:07] VITALS: BP 132/73
[2019-08-28] MEDS: PROPRANOLOL HCL 10 MG TABLET PO SCH ×2 (08:24→16:33)
[2019-08-28] MEDS: BENZTROPINE MESYLATE 1 MG TABLET PO SCH ×2 (08:24→16:33)
[2019-08-28] MEDS: MULTIVITAMINS WITH IRON TABLET PO SCH (08:24)
[2019-08-28] MEDS: PALIPERIDONE 6 MG ER TABLET PO SCH ×2 (08:24→16:33)
[2019-08-28] MEDS: HydrOXYzine PAMOATE 25 MG CAPSULE PO SCH ×2 (08:24→16:33)
[2019-08-28] MEDS: MAGNESIUM OXIDE 400 MG TABLET PO SCH (08:24)
[2019-08-28] MEDS: DIVALPROEX SODIUM 250 MG DR TABLET PO SCH ×2 (08:24→16:33)
[2019-08-28] MEDS: OMEPRAZOLE 20 MG CAPSULE PO SCH (08:24)
[2019-08-28] MEDS: PHENYTOIN SODIUM 100 MG ER CAPSULE PO SCH ×2 (08:24→20:33)
[2019-08-28 16:06] VITALS: BP 141/76
[2019-08-28] MEDS: PARoxetine HCL 10 MG TABLET PO SCH (20:33)
[2019-08-28] MEDS: ATORVASTATIN CALCIUM 20 MG TABLET PO SCH (20:33)
[2019-08-29 01:22] VITALS: BP 139/62
[2019-08-29] MEDS: ZOLPIDEM TARTRATE 10 MG TABLET PO PRN ×2 (01:42→21:01)
[2019-08-29] MEDS: LORazepam 2 MG TABLET PO PRN ×2 (03:56→17:22)
[2019-08-29 07:59] LABS: ANION GAP 5 mmol/L (8-16); CALCIUM, TOTAL 8.8 mg/dL (8.8-10.5); CARBON DIOXIDE 32 mmol/L (22-29); CHLORIDE 97 mmol/L (98-107); CREATININE 0.43 mg/dL (0.60-1.30); GLOMERULAR FILTR. RATE CALC > 60 mL/min (>60); GLUCOSE,RANDOM 93 mg/dL (70-110); POTASSIUM 4.4 mmol/L (3.5-5.1); SODIUM SERUM 134 mmol/L (136-145); UREA NITROGEN, BLOOD 15 mg/dL (7-18)
[2019-08-29] MEDS: PROPRANOLOL HCL 10 MG TABLET PO SCH ×2 (08:08→16:24)
[2019-08-29] MEDS: BENZTROPINE MESYLATE 1 MG TABLET PO SCH ×2 (08:08→16:24)
[2019-08-29] MEDS: PALIPERIDONE 6 MG ER TABLET PO SCH ×2 (08:08→16:24)
[2019-08-29] MEDS: OMEPRAZOLE 20 MG CAPSULE PO SCH (08:09)
[2019-08-29] MEDS: MAGNESIUM OXIDE 400 MG TABLET PO SCH (08:09)
[2019-08-29] MEDS: PHENYTOIN SODIUM 100 MG ER CAPSULE PO SCH ×2 (08:09→21:00)
[2019-08-29] MEDS: MULTIVITAMINS WITH IRON TABLET PO SCH (08:09)
[2019-08-29] MEDS: HydrOXYzine PAMOATE 25 MG CAPSULE PO SCH ×2 (08:09→16:24)
[2019-08-29] MEDS: DIVALPROEX SODIUM 250 MG DR TABLET PO SCH ×2 (08:09→16:23)
[2019-08-29 08:11] VITALS: BP 112/69
[2019-08-29 16:01] VITALS: BP 108/67
[2019-08-29] MEDS: PARoxetine HCL 10 MG TABLET PO SCH (21:01)
[2019-08-29] MEDS: ATORVASTATIN CALCIUM 20 MG TABLET PO SCH (21:01)
[2019-08-29 22:15] VITALS: BP 106/70
[2019-08-29] MEDS: IBUPROFEN 600 MG TABLET PO PRN (22:15)
[2019-08-30 08:31] VITALS: BP 113/60
[2019-08-30] MEDS: PALIPERIDONE 6 MG ER TABLET PO SCH ×2 (08:33→16:33)
[2019-08-30] MEDS: HydrOXYzine PAMOATE 25 MG CAPSULE PO SCH ×2 (08:33→16:33)
[2019-08-30] MEDS: OMEPRAZOLE 20 MG CAPSULE PO SCH (08:33)
[2019-08-30] MEDS: MULTIVITAMINS WITH IRON TABLET PO SCH (08:33)
[2019-08-30] MEDS: PHENYTOIN SODIUM 100 MG ER CAPSULE PO SCH ×2 (08:33→20:08)
[2019-08-30] MEDS: BENZTROPINE MESYLATE 1 MG TABLET PO SCH ×2 (08:33→16:33)
[2019-08-30] MEDS: PROPRANOLOL HCL 10 MG TABLET PO SCH ×2 (08:33→16:33)
[2019-08-30] MEDS: DIVALPROEX SODIUM 250 MG DR TABLET PO SCH ×2 (08:33→16:32)
[2019-08-30] MEDS: MAGNESIUM OXIDE 400 MG TABLET PO SCH (08:33)
[2019-08-30 16:39] VITALS: BP 132/75
[2019-08-30] MEDS: LORazepam 2 MG TABLET PO PRN (18:04)
[2019-08-30] MEDS: PARoxetine HCL 10 MG TABLET PO SCH (20:08)
[2019-08-30] MEDS: ATORVASTATIN CALCIUM 20 MG TABLET PO SCH (20:08)
[2019-08-30] MEDS: ZOLPIDEM TARTRATE 10 MG TABLET PO PRN (21:10)
[2019-08-31 08:08] VITALS: BP 111/64
[2019-08-31] MEDS: BENZTROPINE MESYLATE 1 MG TABLET PO SCH ×2 (08:38→16:30)
[2019-08-31] MEDS: OMEPRAZOLE 20 MG CAPSULE PO SCH (08:38)
[2019-08-31] MEDS: HydrOXYzine PAMOATE 25 MG CAPSULE PO SCH ×2 (08:38→18:11)
[2019-08-31] MEDS: DIVALPROEX SODIUM 250 MG DR TABLET PO SCH ×2 (08:38→16:30)
[2019-08-31] MEDS: PALIPERIDONE 6 MG ER TABLET PO SCH ×2 (08:38→16:30)
[2019-08-31] MEDS: MAGNESIUM OXIDE 400 MG TABLET PO SCH (08:38)
[2019-08-31] MEDS: PHENYTOIN SODIUM 100 MG ER CAPSULE PO SCH ×2 (08:38→20:27)
[2019-08-31] MEDS: MULTIVITAMINS WITH IRON TABLET PO SCH (08:38)
[2019-08-31] MEDS: PROPRANOLOL HCL 10 MG TABLET PO SCH ×2 (08:45→16:30)
[2019-08-31] MEDS: LORazepam 2 MG TABLET PO PRN (16:02)
[2019-08-31 16:35] VITALS: BP 133/77
[2019-08-31] MEDS: PARoxetine HCL 10 MG TABLET PO SCH (20:27)
[2019-08-31] MEDS: ATORVASTATIN CALCIUM 20 MG TABLET PO SCH (20:27)
[2019-08-31] MEDS: ZOLPIDEM TARTRATE 10 MG TABLET PO PRN (21:59)
[2019-09-01 00:21] VITALS: BP 105/56
[2019-09-01] MEDS: LORazepam 2 MG TABLET PO PRN ×3 (02:24→20:31)
[2019-09-01 08:04] VITALS: BP 106/64
[2019-09-01] MEDS: BENZTROPINE MESYLATE 1 MG TABLET PO SCH ×2 (08:26→16:30)
[2019-09-01] MEDS: OMEPRAZOLE 20 MG CAPSULE PO SCH (08:26)
[2019-09-01] MEDS: DIVALPROEX SODIUM 250 MG DR TABLET PO SCH ×2 (08:26→16:30)
[2019-09-01] MEDS: PALIPERIDONE 6 MG ER TABLET PO SCH ×2 (08:26→16:30)
[2019-09-01] MEDS: HydrOXYzine PAMOATE 25 MG CAPSULE PO SCH ×2 (08:26→16:30)
[2019-09-01] MEDS: MULTIVITAMINS WITH IRON TABLET PO SCH (08:26)
[2019-09-01] MEDS: MAGNESIUM OXIDE 400 MG TABLET PO SCH (08:26)
[2019-09-01] MEDS: PROPRANOLOL HCL 10 MG TABLET PO SCH ×2 (08:27→16:30)
[2019-09-01] MEDS: PHENYTOIN SODIUM 100 MG ER CAPSULE PO SCH ×2 (08:27→20:31)
[2019-09-01 16:12] VITALS: BP 113/60
[2019-09-01] MEDS: PARoxetine HCL 10 MG TABLET PO SCH (20:31)
[2019-09-01] MEDS: ATORVASTATIN CALCIUM 20 MG TABLET PO SCH (20:31)
[2019-09-01] MEDS: ZOLPIDEM TARTRATE 10 MG TABLET PO PRN (22:11)
[2019-09-02 01:26] VITALS: BP 106/58
[2019-09-02 08:22] VITALS: BP 119/61
[2019-09-02] MEDS: PHENYTOIN SODIUM 100 MG ER CAPSULE PO SCH ×2 (08:55→20:31)
[2019-09-02] MEDS: PALIPERIDONE 6 MG ER TABLET PO SCH ×2 (08:55→16:28)
[2019-09-02] MEDS: MULTIVITAMINS WITH IRON TABLET PO SCH (08:55)
[2019-09-02] MEDS: OMEPRAZOLE 20 MG CAPSULE PO SCH (08:55)
[2019-09-02] MEDS: HydrOXYzine PAMOATE 25 MG CAPSULE PO SCH ×2 (08:55→16:28)
[2019-09-02] MEDS: BENZTROPINE MESYLATE 1 MG TABLET PO SCH ×2 (08:55→16:27)
[2019-09-02] MEDS: DIVALPROEX SODIUM 250 MG DR TABLET PO SCH ×2 (08:55→16:28)
[2019-09-02] MEDS: PROPRANOLOL HCL 10 MG TABLET PO SCH ×2 (08:55→16:27)
[2019-09-02] MEDS: MAGNESIUM OXIDE 400 MG TABLET PO SCH (08:55)
[2019-09-02 16:09] VITALS: BP 134/76
[2019-09-02] MEDS: LORazepam 2 MG TABLET PO PRN (19:35)
[2019-09-02] MEDS: PARoxetine HCL 10 MG TABLET PO SCH (20:31)
[2019-09-02] MEDS: ATORVASTATIN CALCIUM 20 MG TABLET PO SCH (20:31)
[2019-09-02] MEDS: ZOLPIDEM TARTRATE 10 MG TABLET PO PRN (21:53)
[2019-09-03 00:30] VITALS: BP 113/64
[2019-09-03] MEDS: LORazepam 2 MG TABLET PO PRN ×2 (06:15→20:21)
[2019-09-03 08:02] VITALS: BP 135/68
[2019-09-03] MEDS: PALIPERIDONE 6 MG ER TABLET PO SCH ×2 (08:09→16:37)
[2019-09-03] MEDS: MULTIVITAMINS WITH IRON TABLET PO SCH (08:09)
[2019-09-03] MEDS: MAGNESIUM OXIDE 400 MG TABLET PO SCH (08:09)
[2019-09-03] MEDS: PROPRANOLOL HCL 10 MG TABLET PO SCH ×2 (08:09→16:37)
[2019-09-03] MEDS: PHENYTOIN SODIUM 100 MG ER CAPSULE PO SCH ×2 (08:09→20:39)
[2019-09-03] MEDS: BENZTROPINE MESYLATE 1 MG TABLET PO SCH ×2 (08:09→16:37)
[2019-09-03] MEDS: DIVALPROEX SODIUM 250 MG DR TABLET PO SCH ×2 (08:09→16:37)
[2019-09-03] MEDS: OMEPRAZOLE 20 MG CAPSULE PO SCH (08:10)
[2019-09-03] MEDS: HydrOXYzine PAMOATE 25 MG CAPSULE PO SCH ×2 (08:10→16:37)
[2019-09-03 09:37] LABS: ANION GAP 5 mmol/L (8-16); CALCIUM, TOTAL 9.2 mg/dL (8.8-10.5); CARBON DIOXIDE 33 mmol/L (22-29); CHLORIDE 95 mmol/L (98-107); CREATININE 0.59 mg/dL (0.60-1.30); GLOMERULAR FILTR. RATE CALC > 60 mL/min (>60); GLUCOSE,RANDOM 88 mg/dL (70-110); POTASSIUM 4.2 mmol/L (3.5-5.1); SODIUM SERUM 133 mmol/L (136-145); UREA NITROGEN, BLOOD 18 mg/dL (7-18)
[2019-09-03 16:31] VITALS: BP 138/79
[2019-09-03] MEDS: PARoxetine HCL 10 MG TABLET PO SCH (20:39)
[2019-09-03] MEDS: ATORVASTATIN CALCIUM 20 MG TABLET PO SCH (20:39)
[2019-09-03] MEDS: ZOLPIDEM TARTRATE 10 MG TABLET PO PRN (21:03)
[2019-09-04 00:51] VITALS: BP 113/62
[2019-09-04] MEDS: PALIPERIDONE 6 MG ER TABLET PO SCH ×2 (08:09→16:35)
[2019-09-04] MEDS: SODIUM CHLORIDE 1 GM TABLET PO SCH ×2 (08:09→16:36)
[2019-09-04] MEDS: BENZTROPINE MESYLATE 1 MG TABLET PO SCH ×2 (08:09→16:35)
[2019-09-04] MEDS: PROPRANOLOL HCL 10 MG TABLET PO SCH ×2 (08:09→16:35)
[2019-09-04] MEDS: PHENYTOIN SODIUM 100 MG ER CAPSULE PO SCH ×2 (08:09→20:30)
[2019-09-04] MEDS: HydrOXYzine PAMOATE 25 MG CAPSULE PO SCH ×2 (08:09→16:36)
[2019-09-04] MEDS: MAGNESIUM OXIDE 400 MG TABLET PO SCH (08:10)
[2019-09-04] MEDS: MULTIVITAMINS WITH IRON TABLET PO SCH (08:10)
[2019-09-04] MEDS: OMEPRAZOLE 20 MG CAPSULE PO SCH (08:10)
[2019-09-04] MEDS: DIVALPROEX SODIUM 250 MG DR TABLET PO SCH ×2 (08:10→16:36)
[2019-09-04 08:31] VITALS: BP 98/52
[2019-09-04 16:06] VITALS: BP 125/66
[2019-09-04] MEDS: LORazepam 2 MG TABLET PO PRN (18:35)
[2019-09-04] MEDS: ATORVASTATIN CALCIUM 20 MG TABLET PO SCH (20:29)
[2019-09-04] MEDS: PARoxetine HCL 10 MG TABLET PO SCH (20:30)
[2019-09-04] MEDS: ZOLPIDEM TARTRATE 10 MG TABLET PO PRN (21:09)
[2019-09-04 22:51] VITALS: BP 101/70
[2019-09-04] MEDS: IBUPROFEN 600 MG TABLET PO PRN (22:57)
[2019-09-05 00:22] VITALS: BP 125/67
[2019-09-05] MEDS: LORazepam 2 MG TABLET PO PRN ×3 (00:26→20:29)
[2019-09-05] MEDS: OMEPRAZOLE 20 MG CAPSULE PO SCH (08:04)
[2019-09-05] MEDS: HydrOXYzine PAMOATE 25 MG CAPSULE PO SCH ×2 (08:04→17:07)
[2019-09-05] MEDS: BENZTROPINE MESYLATE 1 MG TABLET PO SCH ×2 (08:04→17:08)
[2019-09-05] MEDS: PHENYTOIN SODIUM 100 MG ER CAPSULE PO SCH ×2 (08:04→20:29)
[2019-09-05] MEDS: MULTIVITAMINS WITH IRON TABLET PO SCH (08:04)
[2019-09-05] MEDS: MAGNESIUM OXIDE 400 MG TABLET PO SCH (08:04)
[2019-09-05] MEDS: DIVALPROEX SODIUM 250 MG DR TABLET PO SCH ×2 (08:04→17:08)
[2019-09-05] MEDS: PROPRANOLOL HCL 10 MG TABLET PO SCH ×2 (08:04→17:08)
[2019-09-05] MEDS: SODIUM CHLORIDE 1 GM TABLET PO SCH ×2 (08:04→17:08)
[2019-09-05] MEDS: PALIPERIDONE 6 MG ER TABLET PO SCH ×2 (08:05→17:08)
[2019-09-05 08:06] VITALS: BP 94/57
[2019-09-05 16:00] VITALS: BP 102/64
[2019-09-05 17:13] VITALS: BP 117/65
[2019-09-05 19:21] VITALS: BP 133/77
[2019-09-05] MEDS: IBUPROFEN 600 MG TABLET PO PRN (19:23)
[2019-09-05] MEDS: ATORVASTATIN CALCIUM 20 MG TABLET PO SCH (20:28)
[2019-09-05] MEDS: PARoxetine HCL 10 MG TABLET PO SCH (20:28)
[2019-09-05] MEDS: ZOLPIDEM TARTRATE 10 MG TABLET PO PRN (21:33)
[2019-09-06 00:32] VITALS: BP 123/70
[2019-09-06] MEDS: MAGNESIUM OXIDE 400 MG TABLET PO SCH (08:09)
[2019-09-06] MEDS: OMEPRAZOLE 20 MG CAPSULE PO SCH (08:09)
[2019-09-06] MEDS: BENZTROPINE MESYLATE 1 MG TABLET PO SCH ×2 (08:10→18:03)
[2019-09-06] MEDS: MULTIVITAMINS WITH IRON TABLET PO SCH (08:10)
[2019-09-06] MEDS: DIVALPROEX SODIUM 250 MG DR TABLET PO SCH ×2 (08:10→18:02)
[2019-09-06] MEDS: HydrOXYzine PAMOATE 25 MG CAPSULE PO SCH ×2 (08:10→18:02)
[2019-09-06] MEDS: PALIPERIDONE 6 MG ER TABLET PO SCH ×2 (08:10→18:02)
[2019-09-06] MEDS: PROPRANOLOL HCL 10 MG TABLET PO SCH ×2 (08:10→18:02)
[2019-09-06] MEDS: PHENYTOIN SODIUM 100 MG ER CAPSULE PO SCH ×2 (08:10→21:17)
[2019-09-06] MEDS: SODIUM CHLORIDE 1 GM TABLET PO SCH ×2 (08:10→18:02)
[2019-09-06 08:11] VITALS: BP 125/76
[2019-09-06 08:15] LABS: ANION GAP 3 mmol/L (8-16); CALCIUM, TOTAL 8.8 mg/dL (8.8-10.5); CARBON DIOXIDE 32 mmol/L (22-29); CHLORIDE 97 mmol/L (98-107); CREATININE 0.53 mg/dL (0.60-1.30); GLOMERULAR FILTR. RATE CALC > 60 mL/min (>60); GLUCOSE,RANDOM 83 mg/dL (70-110); POTASSIUM 4.5 mmol/L (3.5-5.1); SODIUM SERUM 132 mmol/L (136-145); UREA NITROGEN, BLOOD 15 mg/dL (7-18)
[2019-09-06] MEDS: LORazepam 2 MG TABLET PO PRN (15:05)
[2019-09-06 16:05] VITALS: BP 130/63
[2019-09-06] MEDS: PARoxetine HCL 10 MG TABLET PO SCH (21:17)
[2019-09-06] MEDS: ATORVASTATIN CALCIUM 20 MG TABLET PO SCH (21:17)
[2019-09-06] MEDS: ZOLPIDEM TARTRATE 10 MG TABLET PO PRN (21:37)
[2019-09-07 04:43] VITALS: BP 126/78
[2019-09-07] MEDS: PROPRANOLOL HCL 10 MG TABLET PO SCH ×2 (08:53→17:17)
[2019-09-07] MEDS: MAGNESIUM OXIDE 400 MG TABLET PO SCH (08:53)
[2019-09-07] MEDS: DIVALPROEX SODIUM 250 MG DR TABLET PO SCH ×2 (08:53→17:17)
[2019-09-07] MEDS: SODIUM CHLORIDE 1 GM TABLET PO SCH ×2 (08:53→17:17)
[2019-09-07] MEDS: LORazepam 2 MG TABLET PO PRN ×2 (08:53→18:27)
[2019-09-07] MEDS: PHENYTOIN SODIUM 100 MG ER CAPSULE PO SCH ×2 (08:54→21:21)
[2019-09-07] MEDS: BENZTROPINE MESYLATE 1 MG TABLET PO SCH ×2 (08:54→17:17)
[2019-09-07] MEDS: OMEPRAZOLE 20 MG CAPSULE PO SCH (08:54)
[2019-09-07] MEDS: HydrOXYzine PAMOATE 25 MG CAPSULE PO SCH ×2 (08:54→17:17)
[2019-09-07] MEDS: MULTIVITAMINS WITH IRON TABLET PO SCH (08:54)
[2019-09-07] MEDS: PALIPERIDONE 6 MG ER TABLET PO SCH ×2 (08:54→17:17)
[2019-09-07] MEDS: IBUPROFEN 600 MG TABLET PO PRN (09:46)
[2019-09-07 16:05] VITALS: BP 122/85
[2019-09-07] MEDS: ATORVASTATIN CALCIUM 20 MG TABLET PO SCH (21:21)
[2019-09-07] MEDS: PARoxetine HCL 10 MG TABLET PO SCH (21:22)
[2019-09-08] MEDS: OMEPRAZOLE 20 MG CAPSULE PO SCH (08:37)
[2019-09-08] MEDS: DIVALPROEX SODIUM 250 MG DR TABLET PO SCH ×2 (08:37→16:35)
[2019-09-08] MEDS: PALIPERIDONE 6 MG ER TABLET PO SCH ×2 (08:37→16:36)
[2019-09-08] MEDS: MULTIVITAMINS WITH IRON TABLET PO SCH (08:37)
[2019-09-08] MEDS: HydrOXYzine PAMOATE 25 MG CAPSULE PO SCH ×2 (08:37→16:36)
[2019-09-08] MEDS: MAGNESIUM OXIDE 400 MG TABLET PO SCH (08:38)
[2019-09-08] MEDS: BENZTROPINE MESYLATE 1 MG TABLET PO SCH ×2 (08:38→16:36)
[2019-09-08] MEDS: PHENYTOIN SODIUM 100 MG ER CAPSULE PO SCH ×2 (08:39→20:29)
[2019-09-08] MEDS: SODIUM CHLORIDE 1 GM TABLET PO SCH ×2 (08:39→16:36)
[2019-09-08] MEDS: PROPRANOLOL HCL 10 MG TABLET PO SCH ×2 (08:40→16:36)
[2019-09-08 08:43] VITALS: BP 136/66
[2019-09-08 16:02] VITALS: BP 114/66
[2019-09-08] MEDS: LORazepam 2 MG TABLET PO PRN (20:29)
[2019-09-08] MEDS: PARoxetine HCL 10 MG TABLET PO SCH (20:29)
[2019-09-08] MEDS: ATORVASTATIN CALCIUM 20 MG TABLET PO SCH (20:29)
[2019-09-08] MEDS: ZOLPIDEM TARTRATE 10 MG TABLET PO PRN (21:05)
[2019-09-09 08:13] VITALS: BP 110/60
[2019-09-09] MEDS: OMEPRAZOLE 20 MG CAPSULE PO SCH (08:32)
[2019-09-09] MEDS: DIVALPROEX SODIUM 250 MG DR TABLET PO SCH ×2 (08:32→16:31)
[2019-09-09] MEDS: BENZTROPINE MESYLATE 1 MG TABLET PO SCH ×2 (08:32→16:31)
[2019-09-09] MEDS: MULTIVITAMINS WITH IRON TABLET PO SCH (08:32)
[2019-09-09] MEDS: HydrOXYzine PAMOATE 25 MG CAPSULE PO SCH ×2 (08:33→16:31)
[2019-09-09] MEDS: PALIPERIDONE 6 MG ER TABLET PO SCH ×2 (08:33→16:31)
[2019-09-09] MEDS: PHENYTOIN SODIUM 100 MG ER CAPSULE PO SCH ×2 (08:33→20:48)
[2019-09-09] MEDS: MAGNESIUM OXIDE 400 MG TABLET PO SCH (08:33)
[2019-09-09] MEDS: PROPRANOLOL HCL 10 MG TABLET PO SCH ×2 (08:34→16:31)
[2019-09-09] MEDS: SODIUM CHLORIDE 1 GM TABLET PO SCH ×2 (08:37→16:31)
[2019-09-09] MEDS: HALOPERIDOL 5 MG TABLET PO PRN (09:59)
[2019-09-09] MEDS: LORazepam 2 MG TABLET PO PRN (09:59)
[2019-09-09 16:35] VITALS: BP 126/64
[2019-09-09] MEDS: PARoxetine HCL 10 MG TABLET PO SCH (20:48)
[2019-09-09] MEDS: ATORVASTATIN CALCIUM 20 MG TABLET PO SCH (20:48)
[2019-09-09] MEDS: ZOLPIDEM TARTRATE 10 MG TABLET PO PRN (21:42)
[2019-09-10 00:21] VITALS: BP 107/76
[2019-09-10] MEDS: LORazepam 2 MG TABLET PO PRN (00:21)
[2019-09-10] MEDS: MULTIVITAMINS WITH IRON TABLET PO SCH (08:08)
[2019-09-10] MEDS: DIVALPROEX SODIUM 250 MG DR TABLET PO SCH ×2 (08:08→16:35)
[2019-09-10] MEDS: OMEPRAZOLE 20 MG CAPSULE PO SCH (08:08)
[2019-09-10] MEDS: MAGNESIUM OXIDE 400 MG TABLET PO SCH (08:08)
[2019-09-10] MEDS: SODIUM CHLORIDE 1 GM TABLET PO SCH ×2 (08:08→16:35)
[2019-09-10] MEDS: PALIPERIDONE 6 MG ER TABLET PO SCH ×2 (08:08→16:35)
[2019-09-10] MEDS: BENZTROPINE MESYLATE 1 MG TABLET PO SCH ×2 (08:08→16:35)
[2019-09-10] MEDS: PHENYTOIN SODIUM 100 MG ER CAPSULE PO SCH ×2 (08:08→20:32)
[2019-09-10] MEDS: PROPRANOLOL HCL 10 MG TABLET PO SCH ×2 (08:08→16:35)
[2019-09-10] MEDS: HydrOXYzine PAMOATE 25 MG CAPSULE PO SCH ×2 (08:08→16:35)
[2019-09-10 08:30] VITALS: BP 110/58
[2019-09-10 16:04] VITALS: BP 129/76
[2019-09-10] MEDS: ATORVASTATIN CALCIUM 20 MG TABLET PO SCH (20:31)
[2019-09-10] MEDS: PARoxetine HCL 10 MG TABLET PO SCH (20:31)
[2019-09-10] MEDS: ZOLPIDEM TARTRATE 10 MG TABLET PO PRN (21:44)
[2019-09-11 00:20] VITALS: BP 118/72
[2019-09-11] MEDS: LORazepam 2 MG TABLET PO PRN ×2 (00:20→10:52)
[2019-09-11] MEDS: HydrOXYzine PAMOATE 25 MG CAPSULE PO SCH ×2 (08:05→16:29)
[2019-09-11] MEDS: OMEPRAZOLE 20 MG CAPSULE PO SCH (08:05)
[2019-09-11] MEDS: SODIUM CHLORIDE 1 GM TABLET PO SCH ×2 (08:05→16:29)
[2019-09-11] MEDS: BENZTROPINE MESYLATE 1 MG TABLET PO SCH ×2 (08:05→16:29)
[2019-09-11] MEDS: DIVALPROEX SODIUM 250 MG DR TABLET PO SCH ×2 (08:05→16:29)
[2019-09-11] MEDS: MULTIVITAMINS WITH IRON TABLET PO SCH (08:05)
[2019-09-11] MEDS: PALIPERIDONE 6 MG ER TABLET PO SCH ×2 (08:05→16:29)
[2019-09-11] MEDS: PHENYTOIN SODIUM 100 MG ER CAPSULE PO SCH ×2 (08:05→20:36)
[2019-09-11] MEDS: MAGNESIUM OXIDE 400 MG TABLET PO SCH (08:05)
[2019-09-11] MEDS: PROPRANOLOL HCL 10 MG TABLET PO SCH ×2 (08:06→16:29)
[2019-09-11] MEDS: HALOPERIDOL 5 MG TABLET PO PRN (10:52)
[2019-09-11] MEDS: ARIPiprazole 10 MG TABLET PO SCH (10:54)
[2019-09-11 16:18] VITALS: BP 140/73
[2019-09-11] MEDS: ATORVASTATIN CALCIUM 20 MG TABLET PO SCH (20:36)
[2019-09-11] MEDS: PARoxetine HCL 10 MG TABLET PO SCH (20:36)
[2019-09-11] MEDS: ZOLPIDEM TARTRATE 10 MG TABLET PO PRN (21:12)
[2019-09-12 00:14] VITALS: BP 109/62
[2019-09-12] MEDS: PALIPERIDONE 6 MG ER TABLET PO SCH ×2 (08:11→16:07)
[2019-09-12] MEDS: PHENYTOIN SODIUM 100 MG ER CAPSULE PO SCH ×2 (08:11→20:06)
[2019-09-12] MEDS: DIVALPROEX SODIUM 250 MG DR TABLET PO SCH ×2 (08:11→16:04)
[2019-09-12] MEDS: ARIPiprazole 10 MG TABLET PO SCH (08:11)
[2019-09-12] MEDS: BENZTROPINE MESYLATE 1 MG TABLET PO SCH ×2 (08:12→16:08)
[2019-09-12] MEDS: OMEPRAZOLE 20 MG CAPSULE PO SCH (08:12)
[2019-09-12] MEDS: MULTIVITAMINS WITH IRON TABLET PO SCH (08:12)
[2019-09-12] MEDS: PROPRANOLOL HCL 10 MG TABLET PO SCH ×2 (08:12→16:08)
[2019-09-12] MEDS: HydrOXYzine PAMOATE 25 MG CAPSULE PO SCH ×2 (08:12→16:07)
[2019-09-12] MEDS: SODIUM CHLORIDE 1 GM TABLET PO SCH ×2 (08:12→16:04)
[2019-09-12] MEDS: MAGNESIUM OXIDE 400 MG TABLET PO SCH (08:12)
[2019-09-12 08:28] VITALS: BP 110/69
[2019-09-12] MEDS: HALOPERIDOL 5 MG TABLET PO PRN (14:27)
[2019-09-12] MEDS: LORazepam 2 MG TABLET PO PRN (14:27)
[2019-09-12] MEDS: ATORVASTATIN CALCIUM 20 MG TABLET PO SCH (20:06)
[2019-09-12] MEDS: PARoxetine HCL 10 MG TABLET PO SCH (20:06)
[2019-09-12] MEDS: VALPROIC ACID 250 MG/5 ML SYRUP UDCUP PO SCH (21:33)
[2019-09-12] MEDS: ZOLPIDEM TARTRATE 10 MG TABLET PO PRN (23:46)
[2019-09-13 00:15] VITALS: BP 106/71
[2019-09-13 08:04] VITALS: BP 106/88
[2019-09-13] MEDS: PROPRANOLOL HCL 10 MG TABLET PO SCH ×2 (08:13→16:29)
[2019-09-13] MEDS: MULTIVITAMINS WITH IRON TABLET PO SCH (08:13)
[2019-09-13] MEDS: MAGNESIUM OXIDE 400 MG TABLET PO SCH (08:14)
[2019-09-13] MEDS: HydrOXYzine PAMOATE 25 MG CAPSULE PO SCH ×2 (08:14→16:29)
[2019-09-13] MEDS: SODIUM CHLORIDE 1 GM TABLET PO SCH ×2 (08:14→16:29)
[2019-09-13] MEDS: PHENYTOIN SODIUM 100 MG ER CAPSULE PO SCH ×2 (08:14→20:29)
[2019-09-13] MEDS: BENZTROPINE MESYLATE 1 MG TABLET PO SCH ×2 (08:14→16:29)
[2019-09-13] MEDS: VALPROIC ACID 250 MG/5 ML SYRUP UDCUP PO SCH ×2 (08:14→20:29)
[2019-09-13] MEDS: OMEPRAZOLE 20 MG CAPSULE PO SCH (08:14)
[2019-09-13] MEDS: PALIPERIDONE 6 MG ER TABLET PO SCH ×2 (08:14→16:29)
[2019-09-13] MEDS: ARIPiprazole 10 MG TABLET PO SCH (08:14)
[2019-09-13] MEDS: LORazepam 2 MG TABLET PO PRN ×2 (10:55→20:55)
[2019-09-13] MEDS: HALOPERIDOL 5 MG TABLET PO PRN (10:55)
[2019-09-13] MEDS: IBUPROFEN 600 MG TABLET PO PRN (13:03)
[2019-09-13 13:04] VITALS: BP 110/82
[2019-09-13 16:01] VITALS: BP 115/64
[2019-09-13] MEDS: PARoxetine HCL 10 MG TABLET PO SCH (20:29)
[2019-09-13] MEDS: ATORVASTATIN CALCIUM 20 MG TABLET PO SCH (20:29)
[2019-09-13] MEDS: ZOLPIDEM TARTRATE 10 MG TABLET PO PRN (22:08)
[2019-09-14 01:04] VITALS: BP 119/64
[2019-09-14 08:18] VITALS: BP 110/62
[2019-09-14 08:43] LABS: ANION GAP 6 mmol/L (8-16); CALCIUM, TOTAL 8.4 mg/dL (8.8-10.5); CARBON DIOXIDE 30 mmol/L (22-29); CHLORIDE 100 mmol/L (98-107); CREATININE 0.37 mg/dL (0.60-1.30); GLOMERULAR FILTR. RATE CALC > 60 mL/min (>60); GLUCOSE,RANDOM 82 mg/dL (70-110); POTASSIUM 4.6 mmol/L (3.5-5.1); SODIUM SERUM 136 mmol/L (136-145); UREA NITROGEN, BLOOD 18 mg/dL (7-18)
[2019-09-14] MEDS: PHENYTOIN SODIUM 100 MG ER CAPSULE PO SCH ×2 (08:52→20:28)
[2019-09-14] MEDS: MAGNESIUM OXIDE 400 MG TABLET PO SCH (08:52)
[2019-09-14] MEDS: SODIUM CHLORIDE 1 GM TABLET PO SCH (08:52)
[2019-09-14] MEDS: VALPROIC ACID 250 MG/5 ML SYRUP UDCUP PO SCH ×2 (08:52→20:28)
[2019-09-14] MEDS: ARIPiprazole 10 MG TABLET PO SCH (08:52)
[2019-09-14] MEDS: OMEPRAZOLE 20 MG CAPSULE PO SCH (08:53)
[2019-09-14] MEDS: BENZTROPINE MESYLATE 1 MG TABLET PO SCH ×2 (08:53→16:32)
[2019-09-14] MEDS: MULTIVITAMINS WITH IRON TABLET PO SCH (08:53)
[2019-09-14] MEDS: PROPRANOLOL HCL 10 MG TABLET PO SCH ×2 (08:53→16:32)
[2019-09-14] MEDS: HydrOXYzine PAMOATE 25 MG CAPSULE PO SCH ×2 (08:53→16:32)
[2019-09-14] MEDS: PALIPERIDONE 6 MG ER TABLET PO SCH ×2 (08:53→16:32)
[2019-09-14] MEDS: LORazepam 2 MG TABLET PO PRN ×2 (12:36→18:34)
[2019-09-14 16:29] VITALS: BP 128/76
[2019-09-14] MEDS: IBUPROFEN 600 MG TABLET PO PRN (16:32)
[2019-09-14] MEDS: ATORVASTATIN CALCIUM 20 MG TABLET PO SCH (20:28)
[2019-09-14] MEDS: PARoxetine HCL 10 MG TABLET PO SCH (20:28)
[2019-09-14] MEDS: ZOLPIDEM TARTRATE 10 MG TABLET PO PRN (20:58)
[2019-09-15 01:32] VITALS: BP 123/63
[2019-09-15] MEDS: MULTIVITAMINS WITH IRON TABLET PO SCH (08:27)
[2019-09-15] MEDS: HydrOXYzine PAMOATE 25 MG CAPSULE PO SCH ×2 (08:28→16:45)
[2019-09-15] MEDS: OMEPRAZOLE 20 MG CAPSULE PO SCH (08:28)
[2019-09-15] MEDS: PALIPERIDONE 6 MG ER TABLET PO SCH ×2 (08:28→16:45)
[2019-09-15] MEDS: MAGNESIUM OXIDE 400 MG TABLET PO SCH (08:29)
[2019-09-15] MEDS: BENZTROPINE MESYLATE 1 MG TABLET PO SCH ×2 (08:29→16:45)
[2019-09-15] MEDS: ARIPiprazole 10 MG TABLET PO SCH (08:29)
[2019-09-15] MEDS: PHENYTOIN SODIUM 100 MG ER CAPSULE PO SCH ×2 (08:30→20:28)
[2019-09-15] MEDS: PROPRANOLOL HCL 10 MG TABLET PO SCH ×2 (08:30→16:45)
[2019-09-15] MEDS: VALPROIC ACID 250 MG/5 ML SYRUP UDCUP PO SCH ×2 (08:31→20:27)
[2019-09-15 16:06] VITALS: BP 123/77
[2019-09-15] MEDS: LORazepam 2 MG TABLET PO PRN (20:05)
[2019-09-15] MEDS: ATORVASTATIN CALCIUM 20 MG TABLET PO SCH (20:27)
[2019-09-15] MEDS: PARoxetine HCL 10 MG TABLET PO SCH (20:27)
[2019-09-15] MEDS: ZOLPIDEM TARTRATE 10 MG TABLET PO PRN (21:05)
[2019-09-15 23:33] VITALS: BP 144/83
[2019-09-15] MEDS: IBUPROFEN 600 MG TABLET PO PRN (23:36)
[2019-09-16 00:19] VITALS: BP 144/97
[2019-09-16] MEDS: PHENYTOIN SODIUM 100 MG ER CAPSULE PO SCH ×2 (08:37→20:31)
[2019-09-16] MEDS: BENZTROPINE MESYLATE 1 MG TABLET PO SCH ×2 (08:37→16:27)
[2019-09-16] MEDS: PALIPERIDONE 6 MG ER TABLET PO SCH ×2 (08:37→16:27)
[2019-09-16] MEDS: ARIPiprazole 10 MG TABLET PO SCH (08:37)
[2019-09-16] MEDS: MULTIVITAMINS WITH IRON TABLET PO SCH (08:37)
[2019-09-16] MEDS: OMEPRAZOLE 20 MG CAPSULE PO SCH (08:38)
[2019-09-16] MEDS: PROPRANOLOL HCL 10 MG TABLET PO SCH ×2 (08:38→16:27)
[2019-09-16] MEDS: MAGNESIUM OXIDE 400 MG TABLET PO SCH (08:38)
[2019-09-16] MEDS: HydrOXYzine PAMOATE 25 MG CAPSULE PO SCH ×2 (08:38→16:27)
[2019-09-16] MEDS: VALPROIC ACID 250 MG/5 ML SYRUP UDCUP PO SCH ×2 (08:46→09:00)
[2019-09-16 16:07] VITALS: BP 123/67
[2019-09-16] MEDS: LORazepam 2 MG TABLET PO PRN (19:39)
[2019-09-16] MEDS: ATORVASTATIN CALCIUM 20 MG TABLET PO SCH (20:31)
[2019-09-16] MEDS: VALPROIC ACID 250 MG CAPSULE PO SCH (20:31)
[2019-09-16] MEDS: PARoxetine HCL 10 MG TABLET PO SCH (20:31)
[2019-09-16] MEDS: ZOLPIDEM TARTRATE 10 MG TABLET PO PRN (20:53)
[2019-09-17 06:07] VITALS: BP 130/69
[2019-09-17] MEDS: ARIPiprazole 10 MG TABLET PO SCH (08:15)
[2019-09-17] MEDS: PALIPERIDONE 6 MG ER TABLET PO SCH ×2 (08:15→16:30)
[2019-09-17] MEDS: OMEPRAZOLE 20 MG CAPSULE PO SCH (08:15)
[2019-09-17] MEDS: HydrOXYzine PAMOATE 25 MG CAPSULE PO SCH ×2 (08:15→16:30)
[2019-09-17] MEDS: MAGNESIUM OXIDE 400 MG TABLET PO SCH (08:15)
[2019-09-17] MEDS: BENZTROPINE MESYLATE 1 MG TABLET PO SCH ×2 (08:15→16:30)
[2019-09-17] MEDS: MULTIVITAMINS WITH IRON TABLET PO SCH (08:15)
[2019-09-17] MEDS: PROPRANOLOL HCL 10 MG TABLET PO SCH ×2 (08:16→16:30)
[2019-09-17] MEDS: PHENYTOIN SODIUM 100 MG ER CAPSULE PO SCH ×2 (08:16→20:29)
[2019-09-17 08:17] VITALS: BP 128/70
[2019-09-17] MEDS: VALPROIC ACID 250 MG CAPSULE PO SCH ×2 (08:17→20:30)
[2019-09-17] MEDS: LORazepam 2 MG TABLET PO PRN ×2 (12:34→20:05)
[2019-09-17 16:08] VITALS: BP 129/76
[2019-09-17] MEDS: IBUPROFEN 600 MG TABLET PO PRN (16:30)
[2019-09-17] MEDS: ATORVASTATIN CALCIUM 20 MG TABLET PO SCH (20:29)
[2019-09-17] MEDS: PARoxetine HCL 10 MG TABLET PO SCH (20:29)
[2019-09-17] MEDS: ZOLPIDEM TARTRATE 10 MG TABLET PO PRN (21:12)
[2019-09-18 00:12] VITALS: BP 101/59
[2019-09-18 08:00] VITALS: BP 111/69
[2019-09-18] MEDS: PHENYTOIN SODIUM 100 MG ER CAPSULE PO SCH ×2 (08:05→20:28)
[2019-09-18] MEDS: VALPROIC ACID 250 MG CAPSULE PO SCH ×2 (08:05→20:29)
[2019-09-18] MEDS: ARIPiprazole 10 MG TABLET PO SCH (08:06)
[2019-09-18] MEDS: PALIPERIDONE 6 MG ER TABLET PO SCH ×2 (08:06→16:27)
[2019-09-18] MEDS: HydrOXYzine PAMOATE 25 MG CAPSULE PO SCH ×2 (08:06→16:27)
[2019-09-18] MEDS: MAGNESIUM OXIDE 400 MG TABLET PO SCH (08:06)
[2019-09-18] MEDS: PROPRANOLOL HCL 10 MG TABLET PO SCH ×2 (08:06→16:27)
[2019-09-18] MEDS: MULTIVITAMINS WITH IRON TABLET PO SCH (08:06)
[2019-09-18] MEDS: OMEPRAZOLE 20 MG CAPSULE PO SCH (08:07)
[2019-09-18] MEDS: BENZTROPINE MESYLATE 1 MG TABLET PO SCH ×2 (08:07→16:27)
[2019-09-18] MEDS: LORazepam 2 MG TABLET PO PRN ×2 (13:13→19:52)
[2019-09-18 16:06] VITALS: BP 130/69
[2019-09-18] MEDS: PARoxetine HCL 10 MG TABLET PO SCH (20:29)
[2019-09-18] MEDS: ATORVASTATIN CALCIUM 20 MG TABLET PO SCH (20:29)
[2019-09-18] MEDS: ZOLPIDEM TARTRATE 10 MG TABLET PO PRN (20:53)
[2019-09-19 08:03] VITALS: BP 136/79
[2019-09-19] MEDS: VALPROIC ACID 250 MG CAPSULE PO SCH ×2 (09:03→20:40)
[2019-09-19] MEDS: MULTIVITAMINS WITH IRON TABLET PO SCH (09:03)
[2019-09-19] MEDS: MAGNESIUM OXIDE 400 MG TABLET PO SCH (09:03)
[2019-09-19] MEDS: ARIPiprazole 10 MG TABLET PO SCH (09:03)
[2019-09-19] MEDS: PALIPERIDONE 6 MG ER TABLET PO SCH ×2 (09:03→16:42)
[2019-09-19] MEDS: PHENYTOIN SODIUM 100 MG ER CAPSULE PO SCH ×2 (09:04→20:41)
[2019-09-19] MEDS: OMEPRAZOLE 20 MG CAPSULE PO SCH (09:04)
[2019-09-19] MEDS: HydrOXYzine PAMOATE 25 MG CAPSULE PO SCH ×2 (09:04→16:42)
[2019-09-19] MEDS: PROPRANOLOL HCL 10 MG TABLET PO SCH ×2 (09:04→16:42)
[2019-09-19] MEDS: BENZTROPINE MESYLATE 1 MG TABLET PO SCH ×2 (09:04→16:42)
[2019-09-19] MEDS: LORazepam 2 MG TABLET PO PRN (13:12)
[2019-09-19 16:03] VITALS: BP 132/74
[2019-09-19] MEDS: IBUPROFEN 600 MG TABLET PO PRN (19:06)
[2019-09-19 19:07] VITALS: BP 133/81
[2019-09-19] MEDS: PARoxetine HCL 10 MG TABLET PO SCH (20:39)
[2019-09-19] MEDS: ATORVASTATIN CALCIUM 20 MG TABLET PO SCH (20:40)
[2019-09-19] MEDS: ZOLPIDEM TARTRATE 10 MG TABLET PO PRN (22:04)
[2019-09-20 00:27] VITALS: BP 115/65
[2019-09-20 08:15] VITALS: BP 110/62
[2019-09-20] MEDS: VALPROIC ACID 250 MG CAPSULE PO SCH ×2 (08:19→20:23)
[2019-09-20] MEDS: OMEPRAZOLE 20 MG CAPSULE PO SCH (08:19)
[2019-09-20] MEDS: HydrOXYzine PAMOATE 25 MG CAPSULE PO SCH ×2 (08:19→16:07)
[2019-09-20] MEDS: ARIPiprazole 10 MG TABLET PO SCH (08:19)
[2019-09-20] MEDS: PALIPERIDONE 6 MG ER TABLET PO SCH ×2 (08:19→16:07)
[2019-09-20] MEDS: BENZTROPINE MESYLATE 1 MG TABLET PO SCH ×2 (08:19→16:07)
[2019-09-20] MEDS: PROPRANOLOL HCL 10 MG TABLET PO SCH ×2 (08:19→16:07)
[2019-09-20] MEDS: MAGNESIUM OXIDE 400 MG TABLET PO SCH (08:19)
[2019-09-20] MEDS: PHENYTOIN SODIUM 100 MG ER CAPSULE PO SCH ×2 (08:19→20:23)
[2019-09-20] MEDS: MULTIVITAMINS WITH IRON TABLET PO SCH (08:20)
[2019-09-20 16:01] VITALS: BP 136/72
[2019-09-20] MEDS: ATORVASTATIN CALCIUM 20 MG TABLET PO SCH (20:22)
[2019-09-20] MEDS: PARoxetine HCL 10 MG TABLET PO SCH (20:23)
[2019-09-20] MEDS: LORazepam 2 MG TABLET PO PRN (20:50)
[2019-09-20] MEDS: ZOLPIDEM TARTRATE 10 MG TABLET PO PRN (21:50)
[2019-09-21 01:03] VITALS: BP 140/73
[2019-09-21] MEDS: LORazepam 2 MG TABLET PO PRN ×3 (01:17→21:59)
[2019-09-21 08:06] VITALS: BP 132/85
[2019-09-21] MEDS: ARIPiprazole 10 MG TABLET PO SCH (08:33)
[2019-09-21] MEDS: BENZTROPINE MESYLATE 1 MG TABLET PO SCH ×2 (08:33→16:41)
[2019-09-21] MEDS: PROPRANOLOL HCL 10 MG TABLET PO SCH ×2 (08:34→16:41)
[2019-09-21] MEDS: PHENYTOIN SODIUM 100 MG ER CAPSULE PO SCH ×2 (08:34→20:16)
[2019-09-21] MEDS: OMEPRAZOLE 20 MG CAPSULE PO SCH (08:34)
[2019-09-21] MEDS: MULTIVITAMINS WITH IRON TABLET PO SCH (08:34)
[2019-09-21] MEDS: VALPROIC ACID 250 MG CAPSULE PO SCH ×2 (08:34→20:15)
[2019-09-21] MEDS: MAGNESIUM OXIDE 400 MG TABLET PO SCH (08:34)
[2019-09-21] MEDS: PALIPERIDONE 6 MG ER TABLET PO SCH ×2 (08:34→16:41)
[2019-09-21] MEDS: HydrOXYzine PAMOATE 25 MG CAPSULE PO SCH ×2 (08:34→16:41)
[2019-09-21 16:01] VITALS: BP 115/72
[2019-09-21] MEDS: PARoxetine HCL 10 MG TABLET PO SCH (20:15)
[2019-09-21] MEDS: ATORVASTATIN CALCIUM 20 MG TABLET PO SCH (20:16)
[2019-09-21] MEDS: ZOLPIDEM TARTRATE 10 MG TABLET PO PRN (20:34)
[2019-09-22 00:42] VITALS: BP 139/78
[2019-09-22] MEDS: IBUPROFEN 600 MG TABLET PO PRN (00:48)
[2019-09-22 07:19] VITALS: BP 132/80
[2019-09-22] MEDS: LORazepam 2 MG TABLET PO PRN ×2 (07:24→14:48)
[2019-09-22] MEDS: ACETAMINOPHEN 325 MG TABLET PO PRN (07:25)
[2019-09-22 08:22] VITALS: BP 138/79
[2019-09-22] MEDS: HydrOXYzine PAMOATE 25 MG CAPSULE PO SCH ×2 (08:53→16:11)
[2019-09-22] MEDS: MAGNESIUM OXIDE 400 MG TABLET PO SCH (08:53)
[2019-09-22] MEDS: VALPROIC ACID 250 MG CAPSULE PO SCH ×2 (08:53→20:19)
[2019-09-22] MEDS: PALIPERIDONE 6 MG ER TABLET PO SCH ×2 (08:53→16:11)
[2019-09-22] MEDS: MULTIVITAMINS WITH IRON TABLET PO SCH (08:54)
[2019-09-22] MEDS: PROPRANOLOL HCL 10 MG TABLET PO SCH ×2 (08:54→16:11)
[2019-09-22] MEDS: ARIPiprazole 10 MG TABLET PO SCH (08:54)
[2019-09-22] MEDS: BENZTROPINE MESYLATE 1 MG TABLET PO SCH ×2 (08:55→16:11)
[2019-09-22] MEDS: PHENYTOIN SODIUM 100 MG ER CAPSULE PO SCH ×2 (08:55→20:18)
[2019-09-22] MEDS: OMEPRAZOLE 20 MG CAPSULE PO SCH (08:55)
[2019-09-22 16:01] VITALS: BP 120/67
[2019-09-22] MEDS: ATORVASTATIN CALCIUM 20 MG TABLET PO SCH (20:18)
[2019-09-22] MEDS: PARoxetine HCL 10 MG TABLET PO SCH (20:19)
[2019-09-22] MEDS: ZOLPIDEM TARTRATE 10 MG TABLET PO PRN (21:08)
[2019-09-23 00:46] VITALS: BP 131/76
[2019-09-23 08:50] LABS: ALANINE AMINOTRANSFERASE 71 U/L (12-78); ALBUMIN 3.4 g/dL (3.4-5.0); ALKALINE PHOSPHATASE 51 U/L (46-116); ANION GAP 4 mmol/L (8-16); ASPARTATE AMINOTRANSFERASE 33 U/L (15-37); BILIRUBIN,TOTAL 0.1 mg/dL (0.1-1.0); CALCIUM, TOTAL 8.9 mg/dL (8.8-10.5); CARBON DIOXIDE 30 mmol/L (22-29); CHLORIDE 93 mmol/L (98-107); CREATINE KINASE, TOTAL ONLY 48 U/L (39-308); CREATININE 0.52 mg/dL (0.60-1.30); GLOMERULAR FILTR. RATE CALC > 60 mL/min (>60); GLUCOSE,RANDOM 87 mg/dL (70-110); PHENYTOIN (DILANTIN) 13.2 mcg/mL (10.0-20.0); POTASSIUM 4.4 mmol/L (3.5-5.1); SODIUM SERUM 127 mmol/L (136-145); TOTAL PROTEIN, SERUM 6.3 g/dL (6.4-8.2); UREA NITROGEN, BLOOD 14 mg/dL (7-18)
[2019-09-23] MEDS: HydrOXYzine PAMOATE 25 MG CAPSULE PO SCH ×2 (08:54→15:55)
[2019-09-23] MEDS: PHENYTOIN SODIUM 100 MG ER CAPSULE PO SCH (08:54)
[2019-09-23] MEDS: PALIPERIDONE 6 MG ER TABLET PO SCH ×2 (08:54→15:55)
[2019-09-23] MEDS: MULTIVITAMINS WITH IRON TABLET PO SCH (08:55)
[2019-09-23] MEDS: MAGNESIUM OXIDE 400 MG TABLET PO SCH (08:55)
[2019-09-23] MEDS: OMEPRAZOLE 20 MG CAPSULE PO SCH (08:55)
[2019-09-23] MEDS: PROPRANOLOL HCL 10 MG TABLET PO SCH ×2 (08:55→15:55)
[2019-09-23] MEDS: BENZTROPINE MESYLATE 1 MG TABLET PO SCH ×2 (08:55→15:56)
[2019-09-23] MEDS: ARIPiprazole 10 MG TABLET PO SCH (08:55)
[2019-09-23] MEDS: VALPROIC ACID 250 MG CAPSULE PO SCH (08:55)
[2019-09-23] MEDS ORDERED: SODIUM CHLORIDE 1 GM TABLET PO SCH (09:30)
[2019-09-23] MEDS: LORazepam 2 MG TABLET PO PRN (14:26)
[2019-09-23] MEDS: IBUPROFEN 600 MG TABLET PO PRN (15:55)
[2019-09-23] MEDS ORDERED: MAGNESIUM OXIDE 400 MG TABLET PO SCH (17:00)
[2019-09-23 17:17] VITALS: BP 135/66
[2019-09-23] MEDS ORDERED: ARIP10TA8 PO (17:40)
[2019-09-23] MEDS ORDERED: VALP250C48 PO (17:40)
[2019-09-23] MEDS ORDERED: PHEN100C9 PO ×2 (17:56)
[2019-09-23] MEDS ORDERED: ATOR20TA86 PO (17:56)
[2019-09-23] MEDS ORDERED: NACL1 PO (17:56)
[2019-09-23] MEDS ORDERED: PROP10TA73 PO (17:56)
[2019-09-23] MEDS ORDERED: MAGOX PO (17:56)
[2019-09-23] MEDS ORDERED: MULT-199 PO (17:56)
== END 2019-09-23 19:05 | disposition home or self-care (01) | DRG 885 ==
LOC: B2S 19:36 → B2X 20:27
PROVIDERS: ADMIT Psychiatry & Neurology Child & Adolescent Psychiatry; ATTEND Psychiatry & Neurology Child & Adolescent Psychiatry
DX: F25.0 Schizoaffective disorder, bipolar type (principal); E87.1 Hypo-osmolality and hyponatremia; D64.9 Anemia, unspecified; E78.5 Hyperlipidemia, unspecified; E83.42 Hypomagnesemia; I10 Essential (primary) hypertension; J44.9 Chronic obstructive pulmonary disease, unspecified; K21.9 Gastro-esophageal reflux disease without esophagitis; K59.00 Constipation, unspecified; M19.90 Unspecified osteoarthritis, unspecified site; T42.0X5A Adverse effect of hydantoin derivatives, initial encounter; Z91.5 Personal history of self-harm; Y92.89 Other specified places as the place of occurrence of the external cause; Z28.21 Immunization not carried out because of patient refusal
CPT/HCPCS: 80074; 83036; 83735; 84100; 84439; 84443; 90732

== ENCOUNTER 2021-06-03 17:04 | Emergency (ER) | payer MEDICARE, OTHER ==
[~2021-06-03] VITALS: Ht 175.3 cm; Wt 62.0 kg
[~2021-06-03 17:04] MED LIST changes: +ARIP10TA38 PO; +ATOR20TA86 PO; +BENZ1TAB10 PO; -DIVA250T60 PO; +HYDR50TA46 PO; +MAGN400T7 PO; -MEDS UNVERIFIED; -MELO-108 PO; +MULT-199 PO; +NACL1 PO; -OLAN10TA3 PO; +PALI6TAB15 PO; +PARO10TA89 PO; +PHEN100C9 PO; +PROP10TA73 PO; +VALP250C48 PO
[2021-06-03 17:59] LABS: BASOPHILS % (AUTO) 0.7 % (0.0-2.0); HEMATOCRIT 36.9 % (41-53); HEMOGLOBIN 12.3 g/dL (13.5-17.5); LYMPHOCYTES # (AUTO) 2.6 K/uL (1.0-4.8); LYMPHOCYTES % (AUTO) 29.8 % (22.0-44.0); MEAN CORPUSCULAR HEMOGLOBIN 30.5 pg (26.0-34.0); MEAN CORPUSCULAR HGB CONC 33.5 G/dL (31.0-37.0); MEAN CORPUSCULAR VOLUME 91 fL (80-100); MONOCYTES # (AUTO) 0.7 K/uL (0.1-1.0); MONOCYTES % (AUTO) 8.1 % (2.0-9.0); NEUTROPHILS # (AUTO) 5.2 K/uL (1.8-7.7); NEUTROPHILS % (AUTO) 59.4 % (40.0-70.0); PLATELET COUNT (AUTO) 335 K/uL (150-450); RED BLOOD CELL COUNT(AUTO) 4.04 MIL/uL (4.50-5.90); RED CELL DISTRIBUTION WIDTH 14.4 % (11.5-14.5)
[2021-06-03 18:13] LABS: ANION GAP 4 mmol/L (8-16); CALCIUM, TOTAL 9.3 mg/dL (8.8-10.5); CARBON DIOXIDE 32 mmol/L (22-29); CHLORIDE 97 mmol/L (98-107); CREATININE 0.61 mg/dL (0.60-1.30); GLOMERULAR FILTR. RATE CALC > 60 mL/min (>60); GLUCOSE,RANDOM 93 mg/dL (70-110); POTASSIUM 4.3 mmol/L (3.5-5.1); SODIUM SERUM 133 mmol/L (136-145); UREA NITROGEN, BLOOD 12 mg/dL (7-18)
[2021-06-03 18:19] LABS: ALANINE AMINOTRANSFERASE 39 U/L (12-78); ALBUMIN 3.9 g/dL (3.4-5.0); ALKALINE PHOSPHATASE 70 U/L (46-116); ASPARTATE AMINOTRANSFERASE 22 U/L (15-37); BILIRUBIN,TOTAL 0.2 mg/dL (0.1-1.0); TOTAL PROTEIN, SERUM 7.4 g/dL (6.4-8.2)
[2021-06-03] MEDS ORDERED: DiphenhydrAMINE HCL 50 MG/ML VIAL IM ONE (18:30)
[2021-06-03] MEDS ORDERED: HALOPERIDOL LACTATE 5 MG/ML VIAL IM ONE (18:30)
[2021-06-03] MEDS ORDERED: LORazepam 2 MG/ML VIAL IM ONE (18:30)
[2021-06-03 21:18] VITALS: BP 124/74
== END 2021-06-03 21:10 ==
LOC: EMS 17:20
DX: F20.9 Schizophrenia, unspecified (principal); F31.9 Bipolar disorder, unspecified; F12.90 Cannabis use, unspecified, uncomplicated; F17.210 Nicotine dependence, cigarettes, uncomplicated; Z88.0 Allergy status to penicillin; Z79.899 Other long term (current) drug therapy
CPT/HCPCS: 36415; 80053; 85025; 96372; 99284; G0480; J1200